=== PATIENT | female | born 1990 | race Caucasian/White ===

== ENCOUNTER → 2016-10-01 | Outpatient (CLI) | payer MEDICAID ==
[~2016-10-01] MED LIST: AA/A14DR2 LEFT EAR; AMOX500C2 PO; AMOX500T2 PO; AUGMENTIN; CEPH-38 PO; CIPR-225 PO; CIPR500T78 PO; CLC500CT PO; CLIN-62 PO; DOXY100T61; FLT05NA16 NSEACH; HYDR1TAB8 PO; IBUP-2055 PO; IBUPROFEN; LORA10TA7 PO; METR500T PO; NF-ESOM40C PO; NITR100C3 PO; ONDA-42 SL; ONDA8TAB9 PO; POTA10CA43 PO; PRD20T PO; PREN1TAB39 PO; SUCR1TAB36 PO; TAMS0.4C98 PO; TERB125G PO; TRAM-42 PO; TRAM50TA2 PO
--- NOTE | 2016-10-01 10:30 | Diagnostic Imaging Report ---
First trimester OB ultrasound. INDICATION: Dating. FINDINGS: There is a normal-appearing single intrauterine . An embryo is seen with cardiac activity at 165 beats per minute. The crown-rump length is at 9 weeks and one day. ELSIE is [birth year]. The ovaries are obscured by bowel gas . IMPRESSION: Live single intrauterine . Dictated by: Dictated on workstation # [id number]
== END ==
LOC: RAD 09:54
PROVIDERS: ATTEND Family Medicine
DX: Z34.80 Encounter for supervision of other normal pregnancy, unspecified trimester (principal)
CPT/HCPCS: 76801

== ENCOUNTER 2016-10-11 18:43 | Observation (INO) | payer MEDICAID ==
[~2016-10-11] VITALS: Ht 162.6 cm; Wt 93.9 kg
[2016-10-11] MEDS ORDERED: NS IV 1000 ML 1,000 ML IV ONE (18:56)
[2016-10-11 19:06] LABS: BILIRUBIN,URINE NEGATIVE (NEGATIVE); KETONES,URINE NEGATIVE (NEGATIVE); LEUKOCYTE ESTERASE ,URINE 2+ (NEGATIVE); NITRITE,URINE NEGATIVE (NEGATIVE); PH,URINE 6 (5-9); PROTEIN,URINE NEGATIVE (NEGATIVE); UROBILINOGEN,URINE NORMAL (NORMAL)
--- NOTE | 2016-10-11 19:15 | ED Cough/URI ---
General Chief Complaint: Fever-Adult/Adol Stated Complaint: PAIN ALL OVER/10 WEEKS Nursing Triage Note: PT TO ED 5 W/ C/O GENERALIZED MALAISE, ACHE, FEVER ONSET 0230 THIS AM. REPORTS SHE IS 11WK ET HAS TAKEN TYLENOL 325 X5 OVER THE LAST 5HRS. Source: patient Exam Limitations: no limitations History of Present Illness Time seen by provider: 18:46 Initial Comments Here with c/o fever, chills, sore throat, body aches, runny nose and fatigue. Onset 1 pm today with fever at 5 PM. Took 5 reg acetaminophen over 5 hours. Reports 11 weeks . Timing/Duration: this afternoon Severity/Quality: mild, dry cough Prior Episodes/Possible Cause: occasional episodes Associated Symptoms: cough, fever/chills, nasal congestion, sore throat Allergies and Home Medications Allergies Coded Allergies: NKANo Known Allergies (Unverified Allergy, Mild, 09/29/08) Home Medications Ibuprofen 200 Mg Tablet, 200 MG PO PRN, (Reported) Prednisone 20 Mg Tab, 20 MG PO DAILY, #5 Prescribed by: PERLITA OJEDA on 05/11/16 1041 Tramadol HCl 50 Mg Tablet, 50 MG PO Q6H PRN for PAIN, #10 Prescribed by: PERLITA OJEDA on 05/11/16 1042 Constitutional: see HPI, chills, fever, malaise EENTM: see HPI Respiratory: see HPI, cough, No short of breath Cardiovascular: No chest pain, No edema Gastrointestinal: No abdominal pain, No diarrhea, No nausea, No vomiting Genitourinary: No dysuria, No pain : Yes Musculoskeletal: no symptoms reported, joint pain, muscle pain Skin: no symptoms reported All Other Systems Reviewed Negative Unless Noted: Yes Past Edwpdas-Ntvmlw-Wpzhok Hx Patient Social History Alcohol Use: Denies Use Recreational Drug Use: No Smoking Status: Current Everyday Smoker Recent Foreign Travel: No Contact w/Someone Who Travel: No Recent Infectious Disease Expo: No Recent Hopitalizations: Yes (childbirth) Immunizations Up To Date Date of Influenza Vaccine: Apr 03, 2015 Seasonal Allergies Seasonal Allergies: No Surgeries HX Surgeries: Yes (bmt) Surgeries: Adenoidectomy, Tonsillectomy Respiratory Hx Respiratory Disorders: Yes Respiratory Disorders: Asthma Cardiovascular Hx Cardiac Disorders: Yes Cardiac Disorders: High Cholesterol Neurological Hx Neurological Disorders: No Reproductive System Hx : 3 Hx Para: 2 Hx Reproductive Disorders: No Genitourinary Hx Genitourinary Disorders: No Gastrointestinal Hx Gastrointestinal Disorders: No Musculoskeletal Hx Musculoskeletal Disorders: Yes Musculoskeletal Disorders: Chronic Back Pain Endocrine Hx Endocrine Disorders: No HEENT HX ENT Disorders: No Cancer Hx Cancer: No Psychosocial Hx Psychiatric Problems: Yes Behavioral Health Disorders: Depression Integumentary HX Skin/Integumentary Disorder: No Blood Transfusions Hx Blood Disorders: No Reviewed Nursing Assessment Reviewed/Agree w Nursing PMH: Yes Family Medical History Significant Family History: Heart Disease, Hypertension Physical Exam Vital Signs Vital Sign - Last 12Hours 10/11/16 18:50 Temp 101.4 Pulse 106 Resp 24 B/P (MAP) 125/70 Pulse Ox 98 O2 Delivery Room Air Capillary Refill : Less Than 3 Seconds General Appearance: WD/WN, no apparent distress HEENT: PERRL/EOMI, pharyngeal erythema, No tonsillar exudate, other (Moderate nasal congestion with clear rhinorrhea.) Neck: full range of motion, supple Respiratory: lungs clear, normal breath sounds Cardiovascular: regular rate, rhythm, no murmur Gastrointestinal: non tender, soft Extremities: normal range of motion, non-tender Neurologic/Psychiatric: alert, oriented x 3 Skin: normal color, warm/dry Focused Exam Lactic Acid Level Laboratory Tests Test 10/11/16 21:05 Lactic Acid Level 0.81 MMOL/L (0.50-2.00) Progress/Results/Core Measures Results/Orders Lab Results Laboratory Tests Test 10/11/16 19:00 10/11/16 19:19 10/11/16 21:05 Range/Units Urine Color YELLOW Urine Clarity CLEAR Urine pH 6 5-9 Urine Specific [place] 1.020 1.016-1.022 Urine Protein NEGATIVE NEGATIVE Urine Glucose (UA) NEGATIVE NEGATIVE Urine Ketones NEGATIVE NEGATIVE Urine Nitrite NEGATIVE NEGATIVE Urine Bilirubin NEGATIVE NEGATIVE Urine Urobilinogen NORMAL NORMAL MG/DL Urine Leukocyte Esterase 2+ H NEGATIVE Urine RBC (Auto) NEGATIVE NEGATIVE Urine RBC NONE /HPF Urine WBC 5-10 H /HPF Urine Squamous Epithelial Cells 2-5 /HPF Urine Crystals NONE /LPF Urine Bacteria TRACE /HPF Urine Casts NONE /LPF Urine Mucus NEGATIVE /LPF Urine Culture Indicated YES White Blood Count 16.0 H 4.3-11.0 10^3/uL Red Blood Count 4.52 4.35-5.85 10^6/uL Hemoglobin 14.3 11.5-16.0 G/DL Hematocrit 42 35-52 % Mean Corpuscular Volume 92 80-99 FL Mean Corpuscular Hemoglobin 32 25-34 PG Mean Corpuscular Hemoglobin Concent 34 32-36 G/DL Red Cell Distribution Width 14.2 10.0-14.5 % Platelet Count 256 130-400 10^3/uL Mean Platelet Volume 10.4 7.4-10.4 FL Neutrophils (%) (Auto) 84 H 42-75 % Lymphocytes (%) (Auto) 9 L 12-44 % Monocytes (%) (Auto) 7 0-12 % Eosinophils (%) (Auto) 0 0-10 % Basophils (%) (Auto) 0 0-10 % Neutrophils # (Auto) 13.4 H 1.8-7.8 X 10^3 Lymphocytes # (Auto) 1.4 1.0-4.0 X 10^3 Monocytes # (Auto) 1.1 H 0.0-1.0 X 10^3 Eosinophils # (Auto) 0.0 0.0-0.3 10^3/uL Basophils # (Auto) 0.0 0.0-0.1 10^3/uL Neutrophils % (Manual) 80 % Lymphocytes % (Manual) 18 % Monocytes % (Manual) 1 % Eosinophils % (Manual) 0 % Basophils % (Manual) 0 % Band Neutrophils 1 % Blood Morphology Comment NORMAL Sodium Level 138 135-145 MMOL/L Potassium Level 3.8 3.6-5.0 MMOL/L Chloride Level 104 98-107 MMOL/L Carbon Dioxide Level 23 21-32 MMOL/L Anion Gap 11 5-14 MMOL/L Blood Urea Nitrogen 9 7-18 MG/DL Creatinine 0.71 0.60-1.30 MG/DL Estimat Glomerular Filtration Rate > 60 BUN/Creatinine Ratio 13 Glucose Level 92 70-105 MG/DL Calcium Level 9.6 8.5-10.1 MG/DL Total Bilirubin 0.3 0.1-1.0 MG/DL Aspartate Amino Transf (AST/SGOT) 14 5-34 U/L Alanine Aminotransferase (ALT/SGPT) 21 0-55 U/L Alkaline Phosphatase 86 40-136 U/L Total Protein 7.0 6.4-8.2 G/DL Albumin 4.0 3.2-4.5 G/DL Acetaminophen Level < 10 L 10-30 UG/ML Monoscreen NEGATIVE NEGATIVE Lactic Acid Level 0.81 0.50-2.00 MMOL/L Micro Results Microbiology 10/11/16 Influenza Types A,B Antigen (EMILY) - Final, Complete My Orders Orders - THOMAS HAWLEY MD Acetaminophen (10/11/16 18:56) Cbc With Automated Diff (10/11/16 18:56) Comprehensive Metabolic Panel (10/11/16 18:56) Ua Culture If Indicated (10/11/16 18:56) Influenza A And B Antigens (10/11/16 18:56) Saline Lock/Iv-Start (10/11/16 18:56) Ns Iv 1000 Ml (Sodium Chloride 0.9%) (10/11/16 18:56) Urine Culture (10/11/16 19:00) Manual Differential (10/11/16 19:19) Monotest (10/11/16 19:31) Ceftriaxone Injection (Rocephin Injectio (10/11/16 20:15) Lactic Acid Analyzer (10/11/16 21:17) Blood Culture (10/11/16 21:17) Hydrocodone/Apap 5/325 Tablet (Lortab 5 (10/11/16 21:21) Drug Screen Stat (Urine) (10/11/16 21:36) Medications Given in ED Current Medications Medications Dose Ordered Sig/Carlos Route Start Time Stop Time Status Last Admin Dose Admin Ceftriaxone Sodium 1000 mg/ Sodium Chloride 50 ml @ 100 mls/hr ONCE ONCE IV 10/11/16 20:15 10/11/16 20:44 DC 10/11/16 20:28 100 MLS/HR Sodium Chloride 1,000 ml @ 0 mls/hr Q0M ONCE IV 10/11/16 18:56 10/11/16 18:59 DC 10/11/16 19:20 1,000 MLS/HR Vital Signs/I&O Vital Sign - Last 12Hours 10/11/16 18:50 Temp 101.4 Pulse 106 Resp 24 B/P (MAP) 125/70 Pulse Ox 98 O2 Delivery Room Air Blood Pressure Mean: 88 Progress Note : Progress Note seen and evaluated. IV, labs, ua, flu screen ordered. NS 1 lt bolus. monitor patient. I did discuss the case with Dr. Jones. We will add mono spot check. Monitor patient. 2029: Rocephin 1 g IV given. Anticipate discharge home. 2054 : I did discuss the case with Dr. Jones. She would actually like to keep her overnight observation and repeat dosing of Rocephin tomorrow to ensure that she is improving. We will do blood cultures and lactic acid although this is after antibiotic administration. No indications of severe sepsis or septic shock at this point. Patient agreeable to admission. 2119: Patient complaining of body aches. Hydrocodone 5/325 one tab by mouth given. Admit, observation status. Lactic acid not elevated. Improved at time of admission. Departure Communication Time/Spoke to Consulting Physi: 20:55 Impression Impression: Primary Impression: Fever Qualified Codes: R50.9 - Fever, unspecified Additional Impression: UTI (urinary tract infection) Qualified Codes: N30.00 - Acute cystitis without hematuria Disposition: ADMITTED INPATIENT Condition: Stable Decision to Admit Reason: Admit from ER (General) Decision to Admit/Date: October 11, 2016 Time/Decision to Admit Time: 20:55 Departure-Patient Inst. Referrals: GIGI GARCIA MD (PCP/Family) Primary Care Physician THOMAS HAWELY MD October 11, 2016 19:15
[2016-10-11 19:28] LABS: BASOPHILS % (AUTO) 0 % (0-10); EOSINOPHILS % (AUTO) 0 % (0-10); LYMPHOCYTES # (AUTO) 1.4 X 10^3 (1.0-4.0); LYMPHOCYTES % (AUTO) 9 % (12-44); MEAN CORPUSCULAR HEMOGLOBIN 32 PG (25-34); MEAN CORPUSCULAR HGB CONC 34 G/DL (32-36); MEAN CORPUSCULAR VOLUME 92 FL (80-99); MEAN PLATELET VOLUME 10.4 FL (7.4-10.4); MONOCYTES # (AUTO) 1.1 X 10^3 (0.0-1.0); MONOCYTES % (AUTO) 7 % (0-12); NEUTROPHILS # (AUTO) 13.4 X 10^3 (1.8-7.8); NEUTROPHILS % (AUTO) 84 % (42-75); PLATELET COUNT 256 10^3/uL (130-400); RED BLOOD COUNT 4.52 10^6/uL (4.35-5.85); RED CELL DISTRIBUTION WIDTH 14.2 % (10.0-14.5)
[2016-10-11 20:00] LABS: ALANINE AMINOTRANSFERASE 21 U/L (0-55); ANION GAP 11 MMOL/L (5-14); ASPARTATE AMINO TRANSFERASE 14 U/L (5-34); BILIRUBIN,TOTAL 0.3 MG/DL (0.1-1.0); BLOOD UREA NITROGEN 9 MG/DL (7-18); BUN/CREATININE RATIO 13; CALCIUM 9.6 MG/DL (8.5-10.1); CARBON DIOXIDE 23 MMOL/L (21-32); CHLORIDE 104 MMOL/L (98-107); CREATININE SERUM 0.71 MG/DL (0.60-1.30); GFR ESTIMATED > 60; GLUCOSE 92 MG/DL (70-105); POTASSIUM 3.8 MMOL/L (3.6-5.0); SODIUM 138 MMOL/L (135-145)
[2016-10-11 20:01] LABS: ACETAMINOPHEN < 10 UG/ML (10-30)
[2016-10-11 20:06] LABS: BAND NEUTROPHILS 1 %; BASOPHILS % (MANUAL) 0 %; EOSINOPHILS % (MANUAL) 0 %; LYMPHOCYTES % (MANUAL) 18 %; NEUTROPHILS % (MANUAL) 80 %
[2016-10-11] MEDS ORDERED: cefTRIAXone INJECTION 1,000 MG in NS (IVPB) 50 ML IV ONE (20:15)
[2016-10-11] MEDS ORDERED: HYDROcodone/APAP 5 MG/325 MG (LORTAB) TAB PO STA (21:21)
[2016-10-11 22:25] VITALS: BP 121/79
[2016-10-11] MEDS: NS IV 1000 ML 1,000 ML IV SCH (22:54)
[2016-10-11 23:58] VITALS: BP 116/55
[2016-10-12] MEDS: ACETAMINOPHEN 325 MG TABLET/CAPLET (TYLENOL) PO PRN ×4 (00:18→23:52)
[2016-10-12] MEDS: HYDROcodone/APAP 5 MG/325 MG (LORTAB) TAB PO PRN ×3 (03:54→19:49)
[2016-10-12 04:00] VITALS: BP 110/59
[2016-10-12 05:40] LABS: BASOPHILS % (AUTO) 0 % (0-10); EOSINOPHILS % (AUTO) 0 % (0-10); LYMPHOCYTES % (AUTO) 12 % (12-44); MEAN CORPUSCULAR HEMOGLOBIN 32 PG (25-34); MEAN CORPUSCULAR HGB CONC 34 G/DL (32-36); MEAN CORPUSCULAR VOLUME 93 FL (80-99); MEAN PLATELET VOLUME 11.4 FL (7.4-10.4); MONOCYTES # (AUTO) 1.4 X 10^3 (0.0-1.0); MONOCYTES % (AUTO) 8 % (0-12); NEUTROPHILS # (AUTO) 13.7 X 10^3 (1.8-7.8); NEUTROPHILS % (AUTO) 80 % (42-75); PLATELET COUNT 230 10^3/uL (130-400); RED BLOOD COUNT 4.25 10^6/uL (4.35-5.85); RED CELL DISTRIBUTION WIDTH 14.2 % (10.0-14.5); WHITE BLOOD COUNT 17.1 10^3/uL (4.3-11.0)
[2016-10-12 05:58] LABS: ALANINE AMINOTRANSFERASE 18 U/L (0-55); ALBUMIN 3.4 G/DL (3.2-4.5); ANION GAP 11 MMOL/L (5-14); ASPARTATE AMINO TRANSFERASE 12 U/L (5-34); BILIRUBIN,TOTAL 0.3 MG/DL (0.1-1.0); BLOOD UREA NITROGEN 5 MG/DL (7-18); BUN/CREATININE RATIO 9; CALCIUM 8.7 MG/DL (8.5-10.1); CARBON DIOXIDE 19 MMOL/L (21-32); CHLORIDE 107 MMOL/L (98-107); CREATININE SERUM 0.58 MG/DL (0.60-1.30); GFR ESTIMATED > 60; GLUCOSE 94 MG/DL (70-105); POTASSIUM 3.6 MMOL/L (3.6-5.0); SODIUM 137 MMOL/L (135-145)
[2016-10-12] MEDS: NS IV 1000 ML 1,000 ML IV SCH ×3 (06:59→23:53)
[2016-10-12 08:00] VITALS: BP 112/60
--- NOTE | 2016-10-12 09:36 | History & Physicial ([facility]) ---
HPI History of Present Illness: Previously healthy at 10w5d presented to ER with body aches, fever, sore throat, swollen left cervical lymph nodes, left ear pain and vomiting for one day. No vaginal bleeding, no abdominal pain. No known sick contacts. In ER, flu and mono testing negative, but found to have high WBC along with fever. Date seen by provider: October 12, 2016 Time seen by provider: 07:15 Attending Physician Gigi Villafuerte MD PCP Gigi Villafuerte MD Consult Date of Admission October 11, 2016 at 9:44 pm Home Medications Home Medications Reviewed patient Home Medication Reconciliation Form Allergies Coded Allergies: NKANo Known Allergies (Unverified Allergy, Mild, 09/29/08) VCM-Ufpnlx-Tmpbrh Hx Patient Social History Alcohol Use: Denies Use Recreational Drug Use: No Smoking Status: Current Everyday Smoker Recent Foreign Travel: No Contact w/other who traveled: No Recent Hopitalizations: Yes (childbirth) Recent Infectious Disease Expo: No Physical Abuse Screen: No Sexual Abuse: No Immunizations Up To Date Date of Influenza Vaccine: Apr 03, 2015 Past Medical History PMHx: Depression PSurgHx: Tympanostomy tubes Tonsillectomy Family Medical History Significant Family History: Heart Disease, Diabetes, Hypertension Review of Systems ([facility]C) Constitutional: chills, fever EENTM: see HPI Respiratory: see HPI Cardiovascular: No chest pain Gastrointestinal: No abdominal pain, No constipation, No diarrhea, nausea, vomiting Genitourinary: No dysuria : Yes Expected Date of Delivery: Apr 26, 2017 Musculoskeletal: muscle pain Skin: no symptoms reported Psychiatric/Neurological: No Symptoms Reported Reviewed Test Results Reviewed Test Results Lab Laboratory Tests Test 10/11/16 19:00 10/11/16 19:19 10/11/16 21:05 10/12/16 04:52 Range/Units Urine Color YELLOW Urine Clarity CLEAR Urine pH 6 5-9 Urine Specific [place] 1.020 1.016-1.022 Urine Protein NEGATIVE NEGATIVE Urine Glucose (UA) NEGATIVE NEGATIVE Urine Ketones NEGATIVE NEGATIVE Urine Nitrite NEGATIVE NEGATIVE Urine Bilirubin NEGATIVE NEGATIVE Urine Urobilinogen NORMAL NORMAL MG/DL Urine Leukocyte Esterase 2+ H NEGATIVE Urine RBC (Auto) NEGATIVE NEGATIVE Urine RBC NONE /HPF Urine WBC 5-10 H /HPF Urine Squamous Epithelial Cells 2-5 /HPF Urine Crystals NONE /LPF Urine Bacteria TRACE /HPF Urine Casts NONE /LPF Urine Mucus NEGATIVE /LPF Urine Culture Indicated YES Urine Opiates Screen NEGATIVE NEGATIVE Urine Oxycodone Screen NEGATIVE NEGATIVE Urine Methadone Screen NEGATIVE NEGATIVE Urine Propoxyphene Screen NEGATIVE NEGATIVE Urine Barbiturates Screen NEGATIVE NEGATIVE Ur Tricyclic Antidepressants Screen NEGATIVE NEGATIVE Urine Phencyclidine Screen NEGATIVE NEGATIVE Urine Amphetamines Screen NEGATIVE NEGATIVE Urine Methamphetamines Screen NEGATIVE NEGATIVE Urine Benzodiazepines Screen NEGATIVE NEGATIVE Urine Cocaine Screen NEGATIVE NEGATIVE Urine Cannabinoids Screen NEGATIVE NEGATIVE White Blood Count 16.0 H 17.1 H 4.3-11.0 10^3/uL Red Blood Count 4.52 4.25 L 4.35-5.85 10^6/uL Hemoglobin 14.3 13.4 11.5-16.0 G/DL Hematocrit 42 39 35-52 % Mean Corpuscular Volume 92 93 80-99 FL Mean Corpuscular Hemoglobin 32 32 25-34 PG Mean Corpuscular Hemoglobin Concent 34 34 32-36 G/DL Red Cell Distribution Width 14.2 14.2 10.0-14.5 % Platelet Count 256 230 130-400 10^3/uL Mean Platelet Volume 10.4 11.4 H 7.4-10.4 FL Neutrophils (%) (Auto) 84 H 80 H 42-75 % Lymphocytes (%) (Auto) 9 L 12 12-44 % Monocytes (%) (Auto) 7 8 0-12 % Eosinophils (%) (Auto) 0 0 0-10 % Basophils (%) (Auto) 0 0 0-10 % Neutrophils # (Auto) 13.4 H 13.7 H 1.8-7.8 X 10^3 Lymphocytes # (Auto) 1.4 2.0 1.0-4.0 X 10^3 Monocytes # (Auto) 1.1 H 1.4 H 0.0-1.0 X 10^3 Eosinophils # (Auto) 0.0 0.0 0.0-0.3 10^3/uL Basophils # (Auto) 0.0 0.0 0.0-0.1 10^3/uL Neutrophils % (Manual) 80 % Lymphocytes % (Manual) 18 % Monocytes % (Manual) 1 % Eosinophils % (Manual) 0 % Basophils % (Manual) 0 % Band Neutrophils 1 % Blood Morphology Comment NORMAL Sodium Level 138 137 135-145 MMOL/L Potassium Level 3.8 3.6 3.6-5.0 MMOL/L Chloride Level 104 107 98-107 MMOL/L Carbon Dioxide Level 23 19 L 21-32 MMOL/L Anion Gap 11 11 5-14 MMOL/L Blood Urea Nitrogen 9 5 L 7-18 MG/DL Creatinine 0.71 0.58 L 0.60-1.30 MG/DL Estimat Glomerular Filtration Rate > 60 > 60 BUN/Creatinine Ratio 13 9 Glucose Level 92 94 70-105 MG/DL Calcium Level 9.6 8.7 8.5-10.1 MG/DL Total Bilirubin 0.3 0.3 0.1-1.0 MG/DL Aspartate Amino Transf (AST/SGOT) 14 12 5-34 U/L Alanine Aminotransferase (ALT/SGPT) 21 18 0-55 U/L Alkaline Phosphatase 86 74 40-136 U/L Total Protein 7.0 6.0 L 6.4-8.2 G/DL Albumin 4.0 3.4 3.2-4.5 G/DL Acetaminophen Level < 10 L 10-30 UG/ML Monoscreen NEGATIVE NEGATIVE Lactic Acid Level 0.81 0.50-2.00 MMOL/L Test 10/12/16 07:20 Range/Units Group A Streptococcus Screen NEGATIVE NEGATIVE Physical Exam-(CHC) Physical Exam Vital Signs VS - Last 72 Hours, by Label 10/11/16 10/11/16 10/11/16 10/11/16 18:50 22:04 22:25 23:58 Temp 101.4 102.0 100.9 98.8 Pulse 106 112 107 111 Resp 24 24 16 20 B/P (MAP) 125/70 121/79 116/55 Pulse Ox 98 98 99 98 O2 Delivery Room Air 10/12/16 10/12/16 04:00 08:00 Temp 99.9 98.1 Pulse 103 101 Resp 20 16 B/P (MAP) 110/59 112/60 Pulse Ox 99 99 Capillary Refill : Less Than 3 Seconds General Appearance: WD/WN, no apparent distress HEENT: pharyngeal erythema, other (Both TMs with scarring, no evidence of infection) Neck: lymphadenopathy (L) Respiratory: lungs clear, normal breath sounds, no respiratory distress Cardiovascular: regular rate, rhythm, no edema, no murmur Gastrointestinal: normal bowel sounds, non tender, soft Extremities: no pedal edema Neurologic/Psychiatric: alert, normal mood/affect Skin: normal color, warm/dry Assessment/Plan Assessment/Plan Admission Dx 1. Pharyngitis 2. Fever 3. Possible UTI 4. 10 weeks gestation of Plan 1. Pharyngitis- strep, mono and flu testing negative 2. Fever/leukocytosis- suspect related to viral pharyngitis, but given her relatively marked leukocytosis and fever and , will continue IV rocephin and wait on urine culture 3. Possible UTI- culture pending 4. 10 weeks gestation of - ultrasound on 10/01 demonstrated viable IUP, no current intervention needed, will use safest possible medications for DVT ppx- SCDs Diagnosis/Problems: Clinical Quality Measures DVT/VTE Risk/Contraindication: Risk Factor Score Per Nursin RFS Level Per Nursing on Admit: 4+=Very High Copy Copies To 1: GIGI VILLAFUERTE MD, BETHANY N MD October 12, 2016 9:36 am
[2016-10-12] MEDS ORDERED: FLUO20CA42 PO (09:45)
[2016-10-12 12:00] VITALS: BP 108/62
[2016-10-12 16:00] VITALS: BP 101/67
[2016-10-12 19:25] VITALS: BP 106/69
[2016-10-12] MEDS ORDERED: cefTRIAXone INJECTION 1,000 MG in NS (IVPB) 50 ML IV SCH (20:00)
[2016-10-13] VITALS: BP 110/68
[2016-10-13 03:54] VITALS: BP 96/61
[2016-10-13] MEDS: HYDROcodone/APAP 5 MG/325 MG (LORTAB) TAB PO PRN (04:34)
[2016-10-13 05:41] LABS: MEAN PLATELET VOLUME 11.6 FL (7.4-10.4); RED BLOOD COUNT 3.95 10^6/uL (4.35-5.85); RED CELL DISTRIBUTION WIDTH 14.7 % (10.0-14.5); WHITE BLOOD COUNT 16.7 10^3/uL (4.3-11.0)
[2016-10-13] MEDS: NS IV 1000 ML 1,000 ML IV SCH (06:49)
[2016-10-13 08:00] VITALS: BP 102/57
[2016-10-13] MEDS: ACETAMINOPHEN 325 MG TABLET/CAPLET (TYLENOL) PO PRN (08:15)
[2016-10-13] MEDS ORDERED: AMOX500T2 PO (09:26)
--- NOTE | 2016-10-13 09:29 | Discharge Instructions ---
Discharge [facility] Discharge Medications New, Converted or Re-Newed RX: Transmitted to Pharmacy New Medications: Amoxicillin (Amoxicillin) 500 Mg Tablet 500 MG PO Q12H for 10 Days, #20 TAB 0 Refills Continued Medications: Fluoxetine HCl (Prozac) 20 Mg Capsule 20 MG PO DAILY, CAP Patient Instructions Goal/Follow Up Appt: Follow up with Dr. Villafuerte as scheduled unless you are not getting better. Patient Instructions: Take acetaminophen (tylenol) up to 1000 mg up two three times per day to treat fever and/or pain. Do not use ibuprofen or aleve. If you still have fever tomorrow, make an appointment at [facility] right away. Return to The Hospital For: Inability to keep down antibiotics, difficulty swallowing, shortness of breath, high fever in spite of tylenol use Activity & Diet Discharge Diet: Regular Diet Activity as Tolerated: Yes Copy Copies To 1: GIGI VILLAFUERTE MD, BETHANY N MD October 13, 2016 09:28
--- NOTE | 2016-10-13 09:32 | Discharge Summary ---
Diagnosis/Chief Complaint Date of Admission October 11, 2016 at 21:44 Date of Discharge October 13, 2016 Admission Diagnosis Admission Diagnosis 1. Pharyngitis 2. Fever 3. Possible UTI 4. 10 weeks gestation of Discharge Diagnosis 1. Streptococcal pharyngitis 2. Fever 3. Possible UTI- ruled out, urine culture negative 4. 10 weeks gestation of Chief Complaint/HPI Chief Complaint/HPI Previously healthy at 10w5d presented to ER with body aches, fever, sore throat, swollen left cervical lymph nodes, left ear pain and vomiting for one day. No vaginal bleeding, no abdominal pain. No known sick contacts. In ER, flu and mono testing negative, but found to have high WBC along with fever. Discharge Summary-Simple/Stand Consultations Discharge Physical Examination Allergies: Coded Allergies: NKANo Known Allergies (Unverified Allergy, Mild, 09/29/08) Vitals & I&Os Vital Sign - Last 12Hours Date Time Temp Pulse Resp B/P (MAP) Pulse Ox O2 Delivery O2 Flow Rate FiO2 10/13/16 08:00 97.4 92 16 102/57 98 10/11/16 18:50 Room Air Intake and Output 10/13/16 00:00 Intake Total 2950 ml Output Total 3150 ml Balance -200 ml General Appearance: Alert, No Acute Distress Respiratory: Clear to Auscultation, Normal Air Movement Cardiovascular: Regular Rate, No Murmurs Neuro: Normal Gait, Normal Speech Psych/Mental Status: Mental Status NL Hospital Course Patient admitted nad placed on rocephin with unclear origin of fever initially and high WBC- negative rapid strep, flu and mono testing, possible UTI. Urine culture negative, but strep culture was positive. She had fever last at midnight on day of d/c, but was feeling symptomatically much better and given source for fever and less than 48 hours of antibiotics, agreed with request for d/c. Given amoxicillin to complete course and instructed to follow-up barbara if fever persisted after 48 hours of antibiotics (Friday, October 13 pm). Also discussed dosing of acetaminophen to minimize fever due to first trimester and avoiding ibuprofen/NSAIDs due to first trimester . Labs Laboratory Tests Test 10/11/16 19:00 10/11/16 19:19 10/11/16 21:05 10/12/16 04:52 Range/Units Urine Color YELLOW Urine Clarity CLEAR Urine pH 6 5-9 Urine Specific [place] 1.020 1.016-1.022 Urine Protein NEGATIVE NEGATIVE Urine Glucose (UA) NEGATIVE NEGATIVE Urine Ketones NEGATIVE NEGATIVE Urine Nitrite NEGATIVE NEGATIVE Urine Bilirubin NEGATIVE NEGATIVE Urine Urobilinogen NORMAL NORMAL MG/DL Urine Leukocyte Esterase 2+ H NEGATIVE Urine RBC (Auto) NEGATIVE NEGATIVE Urine RBC NONE /HPF Urine WBC 5-10 H /HPF Urine Squamous Epithelial Cells 2-5 /HPF Urine Crystals NONE /LPF Urine Bacteria TRACE /HPF Urine Casts NONE /LPF Urine Mucus NEGATIVE /LPF Urine Culture Indicated YES Urine Opiates Screen NEGATIVE NEGATIVE Urine Oxycodone Screen NEGATIVE NEGATIVE Urine Methadone Screen NEGATIVE NEGATIVE Urine Propoxyphene Screen NEGATIVE NEGATIVE Urine Barbiturates Screen NEGATIVE NEGATIVE Ur Tricyclic Antidepressants Screen NEGATIVE NEGATIVE Urine Phencyclidine Screen NEGATIVE NEGATIVE Urine Amphetamines Screen NEGATIVE NEGATIVE Urine Methamphetamines Screen NEGATIVE NEGATIVE Urine Benzodiazepines Screen NEGATIVE NEGATIVE Urine Cocaine Screen NEGATIVE NEGATIVE Urine Cannabinoids Screen NEGATIVE NEGATIVE White Blood Count 16.0 H 17.1 H 4.3-11.0 10^3/uL Red Blood Count 4.52 4.25 L 4.35-5.85 10^6/uL Hemoglobin 14.3 13.4 11.5-16.0 G/DL Hematocrit 42 39 35-52 % Mean Corpuscular Volume 92 93 80-99 FL Mean Corpuscular Hemoglobin 32 32 25-34 PG Mean Corpuscular Hemoglobin Concent 34 34 32-36 G/DL Red Cell Distribution Width 14.2 14.2 10.0-14.5 % Platelet Count 256 230 130-400 10^3/uL Mean Platelet Volume 10.4 11.4 H 7.4-10.4 FL Neutrophils (%) (Auto) 84 H 80 H 42-75 % Lymphocytes (%) (Auto) 9 L 12 12-44 % Monocytes (%) (Auto) 7 8 0-12 % Eosinophils (%) (Auto) 0 0 0-10 % Basophils (%) (Auto) 0 0 0-10 % Neutrophils # (Auto) 13.4 H 13.7 H 1.8-7.8 X 10^3 Lymphocytes # (Auto) 1.4 2.0 1.0-4.0 X 10^3 Monocytes # (Auto) 1.1 H 1.4 H 0.0-1.0 X 10^3 Eosinophils # (Auto) 0.0 0.0 0.0-0.3 10^3/uL Basophils # (Auto) 0.0 0.0 0.0-0.1 10^3/uL Neutrophils % (Manual) 80 % Lymphocytes % (Manual) 18 % Monocytes % (Manual) 1 % Eosinophils % (Manual) 0 % Basophils % (Manual) 0 % Band Neutrophils 1 % Blood Morphology Comment NORMAL Sodium Level 138 137 135-145 MMOL/L Potassium Level 3.8 3.6 3.6-5.0 MMOL/L Chloride Level 104 107 98-107 MMOL/L Carbon Dioxide Level 23 19 L 21-32 MMOL/L Anion Gap 11 11 5-14 MMOL/L Blood Urea Nitrogen 9 5 L 7-18 MG/DL Creatinine 0.71 0.58 L 0.60-1.30 MG/DL Estimat Glomerular Filtration Rate > 60 > 60 BUN/Creatinine Ratio 13 9 Glucose Level 92 94 70-105 MG/DL Calcium Level 9.6 8.7 8.5-10.1 MG/DL Total Bilirubin 0.3 0.3 0.1-1.0 MG/DL Aspartate Amino Transf (AST/SGOT) 14 12 5-34 U/L Alanine Aminotransferase (ALT/SGPT) 21 18 0-55 U/L Alkaline Phosphatase 86 74 40-136 U/L Total Protein 7.0 6.0 L 6.4-8.2 G/DL Albumin 4.0 3.4 3.2-4.5 G/DL Acetaminophen Level < 10 L 10-30 UG/ML Monoscreen NEGATIVE NEGATIVE Lactic Acid Level 0.81 0.50-2.00 MMOL/L Test 10/12/16 07:20 10/13/16 04:30 Range/Units Group A Streptococcus Screen NEGATIVE NEGATIVE White Blood Count 16.7 H 4.3-11.0 10^3/uL Red Blood Count 3.95 L 4.35-5.85 10^6/uL Hemoglobin 12.5 11.5-16.0 G/DL Hematocrit 37 35-52 % Mean Corpuscular Volume 94 80-99 FL Mean Corpuscular Hemoglobin 32 25-34 PG Mean Corpuscular Hemoglobin Concent 34 32-36 G/DL Red Cell Distribution Width 14.7 H 10.0-14.5 % Platelet Count 206 130-400 10^3/uL Mean Platelet Volume 11.6 H 7.4-10.4 FL Discharge Instructions to patient/family Please see electonic discharge instructions given to patient. Discharge Medications Reviewed and agree with Discharge Medication list on patient's Discharge Instruction sheet Clinical Quality Measures DVT/VTE Risk/Contraindication: Risk Factor Score Per Nursin RFS Level Per Nursing on Admit: 4+=Very High Copy Copies To 1: GIGI GARCIA MD, BETHANY N MD October 13, 2016 09:32
[2016-10-13 10:00] VITALS: BP 102/57
== END 2016-10-13 09:26 | disposition home or self-care (01) ==
LOC: EDUNIT# 18:43 → ER 18:45 → UNDOADMOB 21:44 → 4TH 21:44 → UNDODISOB 10-13 10:15
PROVIDERS: ADMIT Family Medicine; ATTEND Family Medicine
DX: O99.511 Diseases of the respiratory system complicating pregnancy, first trimester (principal); J02.9 Acute pharyngitis, unspecified; R59.0 Localized enlarged lymph nodes; H92.03 Otalgia, bilateral; O99.331 Smoking (tobacco) complicating pregnancy, first trimester; F17.210 Nicotine dependence, cigarettes, uncomplicated; Z3A.10 10 weeks gestation of pregnancy
CPT/HCPCS: 36415; 80053; 80306; 80329; 81000; 83605; 85007; 85025; 85027; 86308; 87040; 87088; 87430; 87804; 96361; 96365; G0378

== ENCOUNTER → 2016-12-18 | Outpatient (CLI) | payer MEDICAID ==
[~2016-12-18] MED LIST changes: +FLUO20CA42 PO
--- NOTE | 2016-12-18 17:25 | Diagnostic Imaging Report ---
INDICATION: survey. TECHNIQUE: Multiple real-time grayscale images were obtained over the gravid uterus. COMPARISON: 10/01/2016 FINDINGS: heart size is 143 beats per minute. The placenta is anterior. No placenta previa. No ventriculomegaly. The four-chamber view appears unremarkable. The cord insertion is not well from adjacent extremity. The spine is not well evaluated. Three-vessel cord is seen. The bladder appears unremarkable. No hydronephrosis or cystic mass at the level of the kidneys. The stomach is not well seen. The posterior fossa and the brain is not well seen. Biometrical measurements are as follows: Biparietal 5.0 cm, age 21 weeks 1 days. Head circumference 18.5 cm, age 21 weeks 0 days. Abdominal circumference 16.6 cm, age 21 weeks 5 days. Femur length 3.3 cm, age 20 weeks 2 days. Sonographic estimate age: 21 weeks 1 days. This compares to gestational age of 20 weeks and 2 days based on ELSIE of 05[birth year]05/2017. Sonographic estimated date of delivery: 04/29/17. Estimated Weight: 392 gm (+/- 57 gm). LMP percentile: 83%. heart rate: 143 beats per minute. number: 1 of 1. IMPRESSION: Followup study within 2 weeks is recommended to reevaluate the spine, cord insertion, the posterior fossa, and the stomach. Dictated by: Dictated on workstation # [id number]
== END ==
LOC: RAD 10:11
PROVIDERS: ATTEND Family Medicine
DX: Z36 Encounter for antenatal screening of mother (principal); Z3A.21 21 weeks gestation of pregnancy
CPT/HCPCS: 76805

== ENCOUNTER 2017-01-13 09:04 | Outpatient (CLI) | payer MEDICAID ==
[~2017-01-13] VITALS: Ht 162.6 cm; Wt 91.3 kg
[2017-01-13 09:20] VITALS: BP 108/68
[2017-01-13 09:47] LABS: BILIRUBIN,URINE NEGATIVE (NEGATIVE); KETONES,URINE NEGATIVE (NEGATIVE); LEUKOCYTE ESTERASE ,URINE 3+ (NEGATIVE); NITRITE,URINE NEGATIVE (NEGATIVE); PH,URINE 7 (5-9); PROTEIN,URINE NEGATIVE (NEGATIVE); UROBILINOGEN,URINE NORMAL (NORMAL)
[2017-01-13] MEDS ORDERED: HYDR250V7 IM ×2 (09:49)
[2017-01-13] MEDS ORDERED: PREN1TAB86 PO ×2 (09:49)
[2017-01-13] MEDS ORDERED: NITR-65 PO ×2 (10:15)
--- NOTE | 2017-01-14 13:02 | Physician Query-Final Dx ---
PAYAM OATES 01/14/17 1302: Clinic Account Progress/Dx Physician Query: Please give diagnosis Date of Service Jan 13, 2017 at 09:04 ARIEL IRVIN DO 02/04/17 0616: Clinic Account Progress/Dx DIAGNOSIS: Diagnosis 1. 24wk GA 2. dysuria PAYAM OATES Jan 14, 2017 13:02 ARIEL IRVIN DO Feb 04, 2017 06:16
== END 2017-01-13 10:25 | disposition home or self-care (01) ==
LOC: WSo 09:04 → LDRP 09:08 → WSo 10:25
PROVIDERS: ATTEND Family Medicine
DX: R30.0 Dysuria (principal); Z3A.24 24 weeks gestation of pregnancy
CPT/HCPCS: 80306; 81000; 87088; 99213

== ENCOUNTER → 2017-01-31 | Outpatient (CLI) | payer MEDICAID ==
[~2017-01-31] MED LIST changes: +HYDR250V7 IM; +NITR-65 PO; +PREN1TAB86 PO
--- NOTE | 2017-01-31 16:42 | Diagnostic Imaging Report ---
INDICATION: contractions. FINDINGS: Cervix measuring a maximal length of 3.2 cm was nondilated. Pires gestation is in cephalic position. The amniotic fluid volume appears unremarkable. The placenta is anterior. No gross abnormality at the anatomical survey revealed; however, cord insertion and spine suboptimally evaluated on a positional basis. IMPRESSION: Cervix is measuring 3.2 cm. It is nondilated. There is a normal volume of amniotic fluid. Dictated by: Dictated on workstation # [id number]
== END ==
LOC: RAD 15:55
PROVIDERS: ATTEND Nurse Practitioner Family
DX: O47.9 False labor, unspecified (principal); Z3A.00 Weeks of gestation of pregnancy not specified
CPT/HCPCS: 76815

== ENCOUNTER 2017-02-24 09:45 | Emergency (ER) | payer MEDICAID ==
[~2017-02-24] VITALS: Ht 162.6 cm; Wt 91.3 kg
[2017-02-24 10:55] VITALS: BP 116/77
== END 2017-02-24 10:55 | disposition home or self-care (01) ==
LOC: EDUNIT# 09:45 → ER 09:47
DX: O99.89 Other specified diseases and conditions complicating pregnancy, childbirth and the puerperium (principal); M67.431 Ganglion, right wrist; M67.432 Ganglion, left wrist; O99.343 Other mental disorders complicating pregnancy, third trimester; F32.9 Major depressive disorder, single episode, unspecified; O99.513 Diseases of the respiratory system complicating pregnancy, third trimester; J45.909 Unspecified asthma, uncomplicated; O99.283 Endocrine, nutritional and metabolic diseases complicating pregnancy, third trimester; E78.00 Pure hypercholesterolemia, unspecified; Z90.49 Acquired absence of other specified parts of digestive tract; Z90.89 Acquired absence of other organs; Z3A.30 30 weeks gestation of pregnancy; Z82.49 Family history of ischemic heart disease and other diseases of the circulatory system
CPT/HCPCS: 99282

== ENCOUNTER 2017-03-20 00:41 | Outpatient (CLI) | payer MEDICAID ==
[~2017-03-20] VITALS: Ht 162.6 cm; Wt 89.9 kg
[2017-03-20 01:00] VITALS: BP 120/75
[2017-03-20 01:10] LABS: BILIRUBIN,URINE NEGATIVE (NEGATIVE); KETONES,URINE NEGATIVE (NEGATIVE); LEUKOCYTE ESTERASE ,URINE 3+ (NEGATIVE); NITRITE,URINE NEGATIVE (NEGATIVE); PH,URINE 6.5 (5-9); PROTEIN,URINE NEGATIVE (NEGATIVE); UROBILINOGEN,URINE NORMAL (NORMAL)
[2017-03-20] MEDS ORDERED: RIMA100T PO (01:30)
[2017-03-20] MEDS ORDERED: CETI10CA PO (01:31)
[2017-03-20] MEDS ORDERED: LIDOCAINE 1% INJ 20 ML (XYLOCAINE) VIAL INJ ONE (02:00)
[2017-03-20] MEDS ORDERED: cefTRIAXone 1 GM (ROCEPHIN) VIAL IM ONE (02:00)
[2017-03-20] MEDS ORDERED: NITR-65 PO (02:13)
--- NOTE | 2017-03-21 11:36 | Physician Query-Final Dx ---
DEIDRA ORLANDO 03/21/17 1136: Clinic Account Progress/Dx Physician Query: Please give diagnosis Date of Service Mar 20, 2017 at 00:41 SHADIA NÚÑEZ DO 03/22/17 2126: Clinic Account Progress/Dx DIAGNOSIS: Diagnosis Threatened Labor DEIDRA ORLANDO Mar 21, 2017 11:36 SHADIA NÚÑEZ DO Mar 22, 2017 21:26
== END 2017-03-20 02:30 | disposition home or self-care (01) ==
LOC: WSo 00:41 → LDRP 00:42 → WSo 02:30
PROVIDERS: ATTEND Family Medicine
DX: O47.03 False labor before 37 completed weeks of gestation, third trimester (principal); Z3A.33 33 weeks gestation of pregnancy
CPT/HCPCS: 81000; 87088; 96372; 99213

== ENCOUNTER 2017-04-07 01:25 | Inpatient (IN) | payer MEDICAID ==
[2017-04-07] VITALS (73 sets, daily range): BP systolic 107–137; BP diastolic 56–89
[~2017-04-07] VITALS: Ht 162.6 cm; Wt 91.7 kg
[~2017-04-07 01:25] MED LIST changes: +CETI10CA PO; +RIMA100T PO
[2017-04-07 01:47] LABS: BILIRUBIN,URINE NEGATIVE (NEGATIVE); KETONES,URINE NEGATIVE (NEGATIVE); LEUKOCYTE ESTERASE ,URINE NEGATIVE (NEGATIVE); NITRITE,URINE NEGATIVE (NEGATIVE); PH,URINE 8 (5-9); PROTEIN,URINE NEGATIVE (NEGATIVE); UROBILINOGEN,URINE NORMAL (NORMAL)
[2017-04-07] MEDS ORDERED: ACET325T38 PO (01:53)
[2017-04-07 01:54] LABS: SQUAMOUS EPITHELIAL CELL,UR 0-2 /HPF; WBC,URINE RARE /HPF
[2017-04-07] MEDS ORDERED: morphine INJ 10 MG/ML 1ML (SYR OR VIAL) IJ ONE (04:00)
[2017-04-07] MEDS ORDERED: morphine INJ 10 MG/ML 1ML (SYR OR VIAL) IVP NR (07:30)
[2017-04-07] MEDS ORDERED: D5 LR IV SOLUTION 1,000 ML IV ONE (10:12)
[2017-04-07] MEDS: D5 LR IV SOLUTION 1,000 ML IV SCH ×2 (10:33→20:08)
[2017-04-07] MEDS ORDERED: AMPICILLIN 2000 MG INJECTION (IM/IV) ONE (10:42)
[2017-04-07] MEDS ORDERED: NS (IVPB) 50 ML ONE (10:43)
[2017-04-07] MEDS ORDERED: MINERAL OIL CONCENTRATE 99.9% 15 ML UDC TOP PRN (10:45)
[2017-04-07] MEDS ORDERED: AMPICILLIN INJECTION 2,000 MG in NS (IVPB) 50 ML IV SCH (10:45)
[2017-04-07 10:56] LABS: BASOPHILS % (AUTO) 0 % (0-10); EOSINOPHILS # (AUTO) 0.1 10^3/uL (0.0-0.3); EOSINOPHILS % (AUTO) 1 % (0-10); LYMPHOCYTES # (AUTO) 2.7 X 10^3 (1.0-4.0); LYMPHOCYTES % (AUTO) 18 % (12-44); MEAN CORPUSCULAR HEMOGLOBIN 32 PG (25-34); MEAN CORPUSCULAR HGB CONC 35 G/DL (32-36); MEAN CORPUSCULAR VOLUME 89 FL (80-99); MEAN PLATELET VOLUME 11.7 FL (7.4-10.4); MONOCYTES # (AUTO) 1.4 X 10^3 (0.0-1.0); MONOCYTES % (AUTO) 10 % (0-12); NEUTROPHILS # (AUTO) 10.3 X 10^3 (1.8-7.8); NEUTROPHILS % (AUTO) 71 % (42-75); PLATELET COUNT 273 10^3/uL (130-400); RED BLOOD COUNT 4.41 10^6/uL (4.35-5.85); RED CELL DISTRIBUTION WIDTH 13.8 % (10.0-14.5); WHITE BLOOD COUNT 14.5 10^3/uL (4.3-11.0)
[2017-04-07] MEDS ORDERED: SUFENTA 0.6MCG/ML BUPIVA 0.125 100 ML ONE (11:26)
[2017-04-07] MEDS ORDERED: BUPIVACAINE 0.25% 30 ML (SENSORCAINE) VIAL ONE (11:40)
[2017-04-07] MEDS: EPIDURAL (SUFENTA 0.6MCG/ML BUPIVA 0.125%) 100 ML BAG EPI SCH ×2 (12:05→19:56)
[2017-04-07] MEDS ORDERED: LACTATED RINGERS 1,000 ML IV ONE (12:17)
[2017-04-07] MEDS ORDERED: ONDANSETRON 4 MG/2 ML (SDV) Z0FRAN IV PRN (12:30)
[2017-04-07] MEDS ORDERED: NALOXONE 0.4 MG/ML 1 ML (NARCAN) VIAL IV PRN (12:30)
[2017-04-07] MEDS ORDERED: CATHETER FLUSH 10 ML SYR IV SCH (14:00)
[2017-04-07] MEDS: AMPICILLIN INJECTION 1,000 MG in NS (IVPB) 50 ML IV SCH ×2 (15:10→19:22)
--- NOTE | 2017-04-07 18:46 | History & Physical-OB ---
OB - Chief Complaint & HPI Date/Time Date of Admission: Date of Admission: Apr 07, 2017 at 10:44 Time Seen by Provider: 18:41 Chief Complaint/History OB-Reason for Admission/Chief: Labor Hx : 3 Hx Para: 2 Expected Date of Delivery: May 05, 2017 Gestational Age in Weeks: 36 Gestational Age in Days: 0 Allergies and Home Medications Allergies Coded Allergies: NKANo Known Allergies (Unverified Allergy, Mild, 09/29/08) Home Medications Acetaminophen 325 Mg Tablet, 325 MG PO PRN, (Reported) Cetirizine HCl 10 Mg Capsule, 10 MG PO DAILY, (Reported) Fluoxetine HCl 20 Mg Capsule, 10 MG PO DAILY, (Reported) Hydroxyprogesterone Caproate 250 Mg/1 Ml Vial, 250 MG IM WEEK, (Reported) Vit W-Ca,Fe,FA(<1 mg) 1 Each Tablet, 1 EACH PO DAILY, (Reported) Rimantadine HCl 100 Mg Tablet, 100 MG PO DAILY, (Reported) OB - History Hx of Present Care: Yes Ultrasounds: Normal mid trimester US Obstetrical Complications: Other (Previous deliveries x2) Medical Complications: Psychiatric (h/o Substance abuse) Information Induced Hypertension: No Maternal Gestational Diabetes: No Hemorrhage: No Obstetrical History Hx : 3 Hx Para: 2 Hx # Pregnancies: 2 Hx Termination: Yes Delivery History Hx Blood Disorders: No Adverse Rxn to Tranfusion: No (N/a) Patient Past Medical History PMHx: Depression Substance abuse PSurgHx: Tympanostomy tubes Tonsillectomy Social History/Family History HIV/AIDS: No Recent Infectious Disease Expo: No Sexually Transmitted Disease: No Alcohol Use: Denies Use Recreational Drug Use: Yes (h/o Meth, 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 ) Immunizations Hepatitis A: No Hepatitis B: Yes Tetanus Booster (TDap): Less than 5yrs Date of Influenza Vaccine: Mar 07, 2017 Rubella: immune RPR/VDRL: Negative GBS Status: Negative HBsAG: Negative OB - Admission Exam Physical Exam Vitals: Vital Signs 04/07/17 04/07/17 04:10 04:44 Temp 97.5 Pulse 84 Resp 16 B/P (MAP) 114/74 O2 Delivery Room Air HEENT: NCAT Heart: Rhythm Normal Lungs: Clear Abdomen: Gravid Extremities: Normal Reflexes: Normal Cervical Dilatation: 7cm Effacement: 100% Station: -1 Membranes: Ruptured Amniotic Fluid: Clear Decelerations: No Decelerations Labs Laboratory Tests Test 04/07/17 01:35 04/07/17 10:35 Range/Units Urine Color YELLOW Urine Clarity CLEAR Urine pH 8 5-9 Urine Specific [place] 1.015 L 1.016-1.022 Urine Protein NEGATIVE NEGATIVE Urine Glucose (UA) NEGATIVE NEGATIVE Urine Ketones NEGATIVE NEGATIVE Urine Nitrite NEGATIVE NEGATIVE Urine Bilirubin NEGATIVE NEGATIVE Urine Urobilinogen NORMAL NORMAL MG/DL Urine Leukocyte Esterase NEGATIVE NEGATIVE Urine RBC (Auto) NEGATIVE NEGATIVE Urine RBC NONE /HPF Urine WBC RARE /HPF Urine Squamous Epithelial Cells 0-2 /HPF Urine Crystals PRESENT H /LPF Urine Amorphous Sediment FEW RORO PHOSPHATE H /LPF Urine Bacteria TRACE /HPF Urine Casts NONE /LPF Urine Mucus NEGATIVE /LPF Urine Culture Indicated NO White Blood Count 14.5 H 4.3-11.0 10^3/uL Red Blood Count 4.41 4.35-5.85 10^6/uL Hemoglobin 13.9 11.5-16.0 G/DL Hematocrit 39 35-52 % Mean Corpuscular Volume 89 80-99 FL Mean Corpuscular Hemoglobin 32 25-34 PG Mean Corpuscular Hemoglobin Concent 35 32-36 G/DL Red Cell Distribution Width 13.8 10.0-14.5 % Platelet Count 273 130-400 10^3/uL Mean Platelet Volume 11.7 H 7.4-10.4 FL Neutrophils (%) (Auto) 71 42-75 % Lymphocytes (%) (Auto) 18 12-44 % Monocytes (%) (Auto) 10 0-12 % Eosinophils (%) (Auto) 1 0-10 % Basophils (%) (Auto) 0 0-10 % Neutrophils # (Auto) 10.3 H 1.8-7.8 X 10^3 Lymphocytes # (Auto) 2.7 1.0-4.0 X 10^3 Monocytes # (Auto) 1.4 H 0.0-1.0 X 10^3 Eosinophils # (Auto) 0.1 0.0-0.3 10^3/uL Basophils # (Auto) 0.0 0.0-0.1 10^3/uL OB - Assessment/Plan/Diagnosis Assessment Assessment: labor Plan Plan: Expectant Management Other Plan 26 yo @ 36.0 wga admitted for labor Plan - AROM 1829 Clear - Started Ampicillin for unknown GBS - Expectant management Copy Copies To 1: GIGI GARCIA MD, HOLLY R MD Apr 07, 2017 18:46
[2017-04-07] MEDS ORDERED: OXYTOCIN/NORMAL SALINE 500 ML IV ONE (19:27)
[2017-04-07] MEDS ORDERED: OXYTOCIN/NORMAL SALINE 500 ML IV SCH ×2 (19:30→23:46)
[2017-04-07] MEDS ORDERED: LIDOCAINE/EPI 2% 1:200,00 (XYLOCAINE) 10 ML VIAL ONE (19:44)
--- NOTE | 2017-04-07 23:46 | OB Labor & Delivery Record ---
Vag Delivery Note Vag Delivery Note Date of Delivery: 04/07/17 Preoperative Diagnosis: Lashay Adame is a (26 /Para 3 / 2, Gestational Age (wks)36with onset of labor Postoperative Diagnosis: Same Surgeon: GIGI GARCIA Shell Molder: None Anesthesia: epidural Delivery Type: Findings: Female , compound presentation, face presentation Viable female infant, apgars 1/7/8, weight 5#14, 2675 grams Lacerations: right periurethral tear Intact placenta with 3 vessel cord. Nuchal cord x1, body cord or shoulder dystocia Estimated Blood Loss: 250 ml Complications: compound face presentation, labor Condition: Stable Description of Procedure: The patient is a 26 yo G3 now P3 @ 36.0 wga who presented in active labor. She was admitted and informed consent was obtained. Her labor course was remarkable for labor, unknown GBS, compound presentation. She progressed to complete dilatation and began to push. She was then set up for delivery. The 's head was delivered in face presentation in occiput posterior position. The shoulders and remainder of the 's body were then delivered without difficulty. Upon delivery, the head was held below the level of the perineum and the mouth and nares were bulb suctioned. The cord was doubly clamped and cut and the infant was handed off to the pediatric staff and taken to warmer. required oxygen and CPAP for transition and then titrated to room air within mins. An intact placenta with 3- vessel cord delivered via [place] and there was found to be minimal bleeding.~ Vigorous fundal massage was performed and the fundus was found to be firm. IV oxytocin was given wide open. Examination of the vagina and perineum revealed a right yumiko urethral laceration that did not require repair. Sponge, instrument and needle counts were correct. Mom and baby were both in stable condition in the labor suite. Vitals - Labs Vital Signs - I&O Vital Signs Date Time Temp Pulse Resp B/P (MAP) Pulse Ox O2 Delivery O2 Flow Rate FiO2 04/07/17 19:20 105 18 121/78 99 Room Air 04/07/17 19:05 100 18 131/76 98 Room Air 04/07/17 18:50 90 18 114/78 96 Room Air 04/07/17 18:35 86 18 117/74 94 Room Air 04/07/17 18:20 85 18 122/72 90 Room Air 11/13/17 18:05 90 18 117/75 91 Room Air 13/17 17:50 88 18 112/72 97 Room Air 13/17 17:35 89 18 115/73 97 Room Air 13/17 17:20 79 18 117/74 100 Room Air 13/17 17:05 89 18 118/72 98 Room Air 13/17 16:50 85 18 112/73 97 Room Air 13/17 16:35 93 18 117/77 97 Room Air 13/17 16:20 83 18 115/74 98 Room Air 13/17 16:05 92 18 114/66 97 Room Air 13/17 15:51 85 18 115/68 98 Room Air 13/17 15:35 98.4 78 18 118/57 97 Room Air 04/07/17 15:05 76 18 114/81 97 Room Air 04/07/17 14:50 83 18 110/76 98 Room Air 04/07/17 14:35 80 18 109/70 96 Room Air 04/07/17 14:20 98.1 82 18 112/74 97 Room Air 04/07/17 14:05 79 18 112/62 98 Room Air 13/17 13:50 87 18 112/70 99 Room Air 04/07/17 13:35 93 18 114/69 98 Room Air 04/07/17 13:20 90 18 109/69 98 Room Air 04/07/17 13:05 86 18 116/73 99 Room Air 04/07/17 12:48 86 18 119/78 98 Room Air 04/07/17 12:45 90 18 117/76 99 Room Air 13/17 12:42 83 18 117/73 Room Air 13/17 12:40 18 111/74 Room Air 13/17 12:36 83 18 107/70 96 Room Air 13/17 12:33 85 18 112/65 97 Room Air 13/17 12:30 86 18 112/66 97 Room Air 13/17 12:27 87 18 118/67 96 Room Air 13/17 12:25 93 18 113/64 96 Room Air 13/17 12:21 83 18 114/69 97 Room Air 13/17 12:15 91 18 107/67 97 Room Air 04/07/17 12:12 93 18 107/70 Room Air 04/07/17 12:10 95 18 110/72 97 Room Air 04/07/17 12:06 87 18 114/78 97 Room Air 04/07/17 12:03 98.6 85 18 111/71 Room Air 04/07/17 12:00 85 18 111/70 Room Air 04/07/17 11:59 86 18 122/79 Room Air 04/07/17 11:46 83 18 112/75 Room Air 04/07/17 11:21 88 18 120/75 Room Air 04/07/17 07:42 98.0 84 18 127/68 04/07/17 04:44 16 Room Air 04/07/17 04:10 97.5 84 20 114/74 Room Air 04/07/17 01:40 97.4 95 18 112/68 Room Air I & O 04/08/17 07:00 Intake Total 1100 ml Balance 1100 ml Labs Laboratory Tests 04/07/17 01:35: Urine Color YELLOW, Urine Clarity CLEAR, Urine pH 8, Urine Specific [place] 1.015L, Urine Protein NEGATIVE, Urine Glucose (UA) NEGATIVE, Urine Ketones NEGATIVE, Urine Nitrite NEGATIVE, Urine Bilirubin NEGATIVE, Urine Urobilinogen NORMAL, Urine Leukocyte Esterase NEGATIVE, Urine RBC (Auto) NEGATIVE, Urine RBC NONE, Urine WBC RARE, Urine Squamous Epithelial Cells 0-2, Urine Crystals PRESENTH, Urine Amorphous Sediment FEW RORO PHOSPHATEH, Urine Bacteria TRACE, Urine Casts NONE, Urine Mucus NEGATIVE, Urine Culture Indicated NO 04/07/17 10:35: White Blood Count 14.5H, Red Blood Count 4.41, Hemoglobin 13.9, Hematocrit 39, Mean Corpuscular Volume 89, Mean Corpuscular Hemoglobin 32, Mean Corpuscular Hemoglobin Concent 35, Red Cell Distribution Width 13.8, Platelet Count 273, Mean Platelet Volume 11.7H, Neutrophils (%) (Auto) 71, Lymphocytes (%) (Auto) 18 , Monocytes (%) (Auto) 10, Eosinophils (%) (Auto) 1, Basophils (%) (Auto) 0, Neutrophils # (Auto) 10.3H, Lymphocytes # (Auto) 2.7, Monocytes # (Auto) 1.4H, Eosinophils # (Auto) 0.1, Basophils # (Auto) 0.0 04/07/17 18:55: Urine Opiates Screen NEGATIVE, Urine Oxycodone Screen NEGATIVE, Urine Methadone Screen NEGATIVE, Urine Propoxyphene Screen NEGATIVE, Urine Barbiturates Screen NEGATIVE, Ur Tricyclic Antidepressants Screen NEGATIVE, Urine Phencyclidine Screen NEGATIVE, Urine Amphetamines Screen NEGATIVE, Urine Methamphetamines Screen NEGATIVE, Urine Benzodiazepines Screen NEGATIVE, Urine Cocaine Screen NEGATIVE, Urine Cannabinoids Screen NEGATIVE GIGI GARCIA MD Apr 07, 2017 23:45
[2017-04-08] VITALS (11 sets, daily range): BP systolic 91–122; BP diastolic 54–72
[2017-04-08] MEDS ORDERED: WITCH HAZEL(TUCKS) 40 EA JAR TOP PRN
[2017-04-08] MEDS ORDERED: MEASLES,MUMPS,RUBELLA 1 EA INJ SQ ONE
[2017-04-08] MEDS ORDERED: BENZOCAINE/MENTHOL (DERMOPLAST) 56 ML CAN TP PRN
[2017-04-08] MEDS: IBUPROFEN 600 MG (MOTRIN) TAB PO SCH ×5 (00:10→23:44)
[2017-04-08] MEDS ORDERED: CATHETER FLUSH 10 ML SYR IV SCH (06:00)
[2017-04-08 06:23] LABS: BASOPHILS % (AUTO) 0 % (0-10); EOSINOPHILS # (AUTO) 0.1 10^3/uL (0.0-0.3); EOSINOPHILS % (AUTO) 1 % (0-10); LYMPHOCYTES # (AUTO) 2.5 X 10^3 (1.0-4.0); LYMPHOCYTES % (AUTO) 23 % (12-44); MEAN CORPUSCULAR HEMOGLOBIN 32 PG (25-34); MEAN CORPUSCULAR HGB CONC 35 G/DL (32-36); MEAN CORPUSCULAR VOLUME 91 FL (80-99); MEAN PLATELET VOLUME 11.7 FL (7.4-10.4); MONOCYTES # (AUTO) 1.1 X 10^3 (0.0-1.0); MONOCYTES % (AUTO) 10 % (0-12); NEUTROPHILS # (AUTO) 7.2 X 10^3 (1.8-7.8); NEUTROPHILS % (AUTO) 66 % (42-75); PLATELET COUNT 234 10^3/uL (130-400); RED BLOOD COUNT 3.57 10^6/uL (4.35-5.85); RED CELL DISTRIBUTION WIDTH 13.6 % (10.0-14.5); WHITE BLOOD COUNT 10.9 10^3/uL (4.3-11.0)
[2017-04-08] MEDS ORDERED: morphine INJ 10 MG/ML 1ML (SYR OR VIAL) IV NR (07:30)
--- NOTE | 2017-04-08 14:08 | Anesthesia-Regional Post-Op ---
Regional Patient Condition Mental Status: Alert, Oriented x3 Circulation: Same as Pre-Op Headache: Absent Sensation: Full Recovery Motor Block: Absent Post Op Complications Complications None Follow Up Care/Instructions Patient Instructions None needed. Anesthesia/Patient Condition Patient is doing well, no complaints, stable vital signs, no apparent adverse anesthesia problems. No complications reported per nursing. [place] [facility] [place] HOPE SANDERS CRNA Apr 08, 2017 14:08
--- NOTE | 2017-04-08 16:04 | Progress Note (SOAP) ---
Subjective Subjective/Events-last exam PPD#1, denies concerns. Bleeding minimal, mild pain. No shortness of breath or leg pain. No dizziness. Review of Systems Date Seen by Provider: Apr 08, 2017 Time Seen by Provider: 09:30 Objective Exam Last Set of Vital Signs Vital Signs Date Time Temp Pulse Resp B/P (MAP) Pulse Ox O2 Delivery O2 Flow Rate FiO2 04/08/17 11:56 98.4 75 18 103/66 98 Room Air Capillary Refill : I&O Intake and Output 04/09/17 00:00 Intake Total 500 ml Balance 500 ml Intake IV Total 500 ml General: Alert, No Acute Distress Lungs: Clear to Auscultation, Normal Air Movement Heart: Regular Rate, No Murmurs Abdomen: Other (fundus firm below umblicus) Extremities: No Edema Neuro: Normal Speech Results/Procedures Lab Laboratory Tests 04/07/17 18:55: Urine Opiates Screen NEGATIVE, Urine Oxycodone Screen NEGATIVE, Urine Methadone Screen NEGATIVE, Urine Propoxyphene Screen NEGATIVE, Urine Barbiturates Screen NEGATIVE, Ur Tricyclic Antidepressants Screen NEGATIVE, Urine Phencyclidine Screen NEGATIVE, Urine Amphetamines Screen NEGATIVE, Urine Methamphetamines Screen NEGATIVE, Urine Benzodiazepines Screen NEGATIVE, Urine Cocaine Screen NEGATIVE, Urine Cannabinoids Screen NEGATIVE 04/08/17 05:34: White Blood Count 10.9, Red Blood Count 3.57L, Hemoglobin 11.4L, Hematocrit 33L , Mean Corpuscular Volume 91, Mean Corpuscular Hemoglobin 32, Mean Corpuscular Hemoglobin Concent 35, Red Cell Distribution Width 13.6, Platelet Count 234, Mean Platelet Volume 11.7H, Neutrophils (%) (Auto) 66, Lymphocytes (%) (Auto) 23 , Monocytes (%) (Auto) 10, Eosinophils (%) (Auto) 1, Basophils (%) (Auto) 0, Neutrophils # (Auto) 7.2, Lymphocytes # (Auto) 2.5, Monocytes # (Auto) 1.1H, Eosinophils # (Auto) 0.1, Basophils # (Auto) 0.0 Microbiology 04/07/17 Urine Culture - Preliminary, Resulted Assessment/Plan Assessment/Plan Admission Dx labor Plan s/p spontaneous vaginal delivery, - asymptomatic anemia, continue routine care Clinical Quality Measures DVT/VTE Risk/Contraindication: Risk Factor Score Per Nursin RFS Level Per Nursing on Admit: 2=Moderate DIPIKA,AURA N MD Apr 08, 2017 4:04 pm
[2017-04-09 06:15] VITALS: BP 85/54
[2017-04-09] MEDS: IBUPROFEN 600 MG (MOTRIN) TAB PO SCH ×3 (06:15→18:36)
[2017-04-09 10:55] VITALS: BP 119/76
[2017-04-09 13:30] VITALS: BP 114/69
[2017-04-09] MEDS ORDERED: IBUP-1773 PO (15:57)
--- NOTE | 2017-04-09 15:59 | Discharge Instructions ---
Discharge Inst-Women's Serv Depart Medications New, Converted or Re-Newed RX: Transmitted to Pharmacy New Medications: Ibuprofen (Ibuprofen) 600 Mg Tablet 600 MG PO Q6H, #60 TAB 0 Refills Continued Medications: Acetaminophen (Tylenol) 325 Mg Tablet 325 MG PO PRN, TAB Cetirizine HCl (Zyrtec) 10 Mg Capsule 10 MG PO DAILY, CAP Fluoxetine HCl (Prozac) 20 Mg Capsule 10 MG PO DAILY, CAP Vit W-Ca,Fe,FA(<1 mg) ( Vitamins) 1 Each Tablet 1 EACH PO DAILY, TAB Discontinued Medications: Hydroxyprogesterone Caproate (Tulsita) 250 Mg/1 Ml Vial 250 MG IM WEEK, VIAL Follow Up/Instructions Goal/Follow Up: Follow up with Dr. Villafuerte in 6 weeks for visit. Activity Activity: Activity as Tolerated (avoid strenuous activity x 6 weeks) Nothing Inside Vagina: No Douching, No Shedd, No Tampons Diet Discharge Diet: Regular Diet Symptoms to Report to : Bleeding Excessive, Fever Over 101 Degrees F, Pain/ Pressure in Chest, Vaginal Bleeding Increase, Vaginal Discharge Foul, Shortness of Breath For Any Problems or Questions: Contact Your Physician Copies To 1: GIGI VILLAFUERTE MDOCH,AURA Barragan MD Apr 09, 2017 3:59 pm
--- NOTE | 2017-04-09 16:01 | Discharge Summary ---
Diagnosis/Chief Complaint Date of Admission Apr 07, 2017 at 10:44 am Date of Discharge Apr 09, 2017 Admission Diagnosis Admission Diagnosis labor at 36 weeks Discharge Diagnosis s/p Spontaneous vaginal delivery asymptomatic anemia Chief Complaint/HPI Chief Complaint/HPI 26 yo female presented at 36 weeks gestation with contractions, found to be making cervical change. Discharge Summary-Simple/Stand Procedures Spontaneous vaginal delivery Discharge Physical Examination Allergies: Coded Allergies: NKANo Known Allergies (Unverified Allergy, Mild, 09/29/08) Vitals & I&Os Vital Sign - Last 12Hours Date Time Temp Pulse Resp B/P (MAP) Pulse Ox O2 Delivery O2 Flow Rate FiO2 04/09/17 13:30 98.7 84 18 114/69 98 Room Air General Appearance: Alert, No Acute Distress Respiratory: Clear to Auscultation, Normal Air Movement Cardiovascular: Regular Rate, No Murmurs Neuro: Normal Gait, Normal Speech Psych/Mental Status: Mental Status NL Hospital Course See final discharge diagnosis. Labs Laboratory Tests Test 04/07/17 18:55 04/08/17 05:34 Range/Units Urine Opiates Screen NEGATIVE NEGATIVE Urine Oxycodone Screen NEGATIVE NEGATIVE Urine Methadone Screen NEGATIVE NEGATIVE Urine Propoxyphene Screen NEGATIVE NEGATIVE Urine Barbiturates Screen NEGATIVE NEGATIVE Ur Tricyclic Antidepressants Screen NEGATIVE NEGATIVE Urine Phencyclidine Screen NEGATIVE NEGATIVE Urine Amphetamines Screen NEGATIVE NEGATIVE Urine Methamphetamines Screen NEGATIVE NEGATIVE Urine Benzodiazepines Screen NEGATIVE NEGATIVE Urine Cocaine Screen NEGATIVE NEGATIVE Urine Cannabinoids Screen NEGATIVE NEGATIVE White Blood Count 10.9 4.3-11.0 10^3/uL Red Blood Count 3.57 L 4.35-5.85 10^6/uL Hemoglobin 11.4 L 11.5-16.0 G/DL Hematocrit 33 L 35-52 % Mean Corpuscular Volume 91 80-99 FL Mean Corpuscular Hemoglobin 32 25-34 PG Mean Corpuscular Hemoglobin Concent 35 32-36 G/DL Red Cell Distribution Width 13.6 10.0-14.5 % Platelet Count 234 130-400 10^3/uL Mean Platelet Volume 11.7 H 7.4-10.4 FL Neutrophils (%) (Auto) 66 42-75 % Lymphocytes (%) (Auto) 23 12-44 % Monocytes (%) (Auto) 10 0-12 % Eosinophils (%) (Auto) 1 0-10 % Basophils (%) (Auto) 0 0-10 % Neutrophils # (Auto) 7.2 1.8-7.8 X 10^3 Lymphocytes # (Auto) 2.5 1.0-4.0 X 10^3 Monocytes # (Auto) 1.1 H 0.0-1.0 X 10^3 Eosinophils # (Auto) 0.1 0.0-0.3 10^3/uL Basophils # (Auto) 0.0 0.0-0.1 10^3/uL Discharge Instructions to patient/family Please see electronic discharge instructions given to patient. Discharge Medications Reviewed and agree with Discharge Medication list on patient's Discharge Instruction sheet Clinical Quality Measures DVT/VTE Risk/Contraindication: Risk Factor Score Per Nursin RFS Level Per Nursing on Admit: 2=Moderate Copy Copies To 1: GIGI GARCIA MD, BETHANY N MD Apr 09, 2017 4:01 pm
[2017-04-09 18:30] VITALS: BP 112/70
[2017-04-09 18:45] VITALS: BP 112/70
== END 2017-04-09 18:45 | disposition home or self-care (01) | DRG 775 ==
LOC: LDRP 01:25 → WSo 01:25 → LDRP 10:44
PROVIDERS: ADMIT Family Medicine; ATTEND Family Medicine
PROC: 10E0XZZ Delivery of Products of Conception, External Approach (ICD-10-PCS; principal; 2017-04-07)
DX: O60.14X0 Preterm labor third trimester with preterm delivery third trimester, not applicable or unspecified (principal); O69.81X0 Labor and delivery complicated by cord around neck, without compression, not applicable or unspecified; O32.6XX0 Maternal care for compound presentation, not applicable or unspecified; O32.3XX0 Maternal care for face, brow and chin presentation, not applicable or unspecified; O90.81 Anemia of the puerperium; Z37.0 Single live birth; Z3A.36 36 weeks gestation of pregnancy
CPT/HCPCS: 36415; 80306; 81000; 85025; 86850; 86900; 86901; 87088; 99212

== ENCOUNTER 2018-03-07 18:32 | Emergency (ER) | payer SELFPAY ==
[~2018-03-07] VITALS: Ht 162.6 cm; Wt 108.9 kg
[~2018-03-07 18:32] MED LIST changes: +ACET325T38 PO; +IBUP-1773 PO
[2018-03-07] MEDS ORDERED: RT-ALBUTEROL SULF 2.5 MG/3 ML PRE-MIX VIAL INH STA (20:19)
--- NOTE | 2018-03-07 20:32 | ED Cough/URI ---
General Chief Complaint: Cough/Cold/Flu Symptoms Stated Complaint: CONGESTION,COUGH,WHEEZING Nursing Triage Note: pt presents to ed with complaints of cough/soa and wheezing starting yesterday. Source: patient, family Exam Limitations: no limitations History of Present Illness Date Seen by Provider: Mar 07, 2018 Time Seen by Provider: 20:19 Initial Comments Patient presents to ER by private conveyance with 2 days progressively worsening chest congestion cough fevers chills malaise bodyaches. She does not have a history of asthma or COPD. She smokes about half pack cigarettes per day. She's feeling some wheezing. She does not take albuterol or Proventil air. Allergies and Home Medications Allergies Coded Allergies: NKANo Known Allergies (Unverified Allergy, Mild, 09/29/08) Home Medications No Active Prescriptions or Reported Meds Patient Home Medication List Home Medication List Reviewed: Yes Review of Systems Review of Systems Constitutional: chills; No diaphoresis; fever, malaise EENTM: hoarseness, nose congestion, throat pain; No ear discharge, No hearing loss, No ear pain Respiratory: cough, short of breath, wheezing Cardiovascular: No chest pain, No palpitations Gastrointestinal: No abdominal pain, No constipation Genitourinary: No discharge, No dysuria Musculoskeletal: No back pain, No joint pain Past Pcbzzwl-Zdjqpo-Ujumci Hx Patient Social History Alcohol Use: Denies Use Recreational Drug Use: No Drug of Choice: marijuana, "dope" Smoking Status: Current Everyday Smoker Type Used: Cigarettes Recent Foreign Travel: No Contact w/Someone Who Travel: No Recent Infectious Disease Expo: No Recent Hopitalizations: No Physical Abuse: No Sexual Abuse: No Mistreated: No Fear: No Immunizations Up To Date Tetanus Booster (TDap): Less than 5yrs PED Vaccines UTD: No Date of Influenza Vaccine: Mar 07, 2017 Seasonal Allergies Seasonal Allergies: Yes Past Medical History Surgeries: Yes (tubes in ears ) Adenoidectomy, Tonsillectomy Respiratory: Yes Asthma Cardiac: No High Cholesterol Neurological: No : No Reproductive Disorders: No Female Reproductive Disorders: Denies Sexually Transmitted Disease: No HIV/AIDS: No Genitourinary: No UTI-Chronic Gastrointestinal: No Musculoskeletal: No Chronic Back Pain Endocrine: No HEENT: Yes Chronic Ear Infection Hearing Impairment: Denies Cancer: No Psychosocial: Yes (Prozac ) Depression Integumentary: No Blood Disorders: No Adverse Reaction/Blood Tranf: No (N/a) Family Medical History HEART STENTS 19 FATHER Hypertension 19 MOTHER Myocardial infarction 19 FATHER Heart Disease, Diabetes, Hypertension Physical Exam Vital Signs - First Documented 03/07/18 19:51 Temp 98.9 Pulse 100 Resp 16 B/P (MAP) 124/81 (95) Pulse Ox 99 O2 Delivery Room Air Capillary Refill : Less Than 3 Seconds Height: 5'4.00" Weight: 240lbs. 4.0oz. 108.105142mj; 34.7 BMI Method:Stated General Appearance: WD/WN, no apparent distress Eyes: Bilateral Eye Normal Inspection, Bilateral Eye PERRL, Bilateral Eye EOMI HEENT: PERRL/EOMI, normal ENT inspection, TMs normal, pharyngeal erythema Neck: non-tender, full range of motion, supple, normal inspection Respiratory: chest non-tender, no respiratory distress, no accessory muscle use , wheezing, expiration Cardiovascular: normal peripheral pulses, regular rate, rhythm Neurologic/Psychiatric: alert, normal mood/affect, oriented x 3 Skin: normal color, warm/dry Progress/Results/Core Measures Suspected Sepsis Recent Fever Within 48 Hours: No Infection Criteria Present: None New/Unexplained Altered Menta: No Sepsis Screen: No Definite Risk SIRS Temperature:98.9 Pulse: 100 Respiratory Rate: 16 Blood Pressure 124 /81 Mean: 95 Results/Orders Lab Results Laboratory Tests Test 03/07/18 20:20 Range/Units Group A Streptococcus Screen NEGATIVE NEGATIVE Micro Results Microbiology 03/07/18 Influenza Types A,B Antigen (EMILY) - Final, Complete My Orders Orders - HECTOR MCNEIL Albuterol Pre-Mix Nebs (Rt) (Proventil (03/07/18 20:19) Svn Small Volume Nebulizer (03/07/18 20:19) Influenza A And B Antigens (03/07/18 20:19) Rapid Strep A Screen (03/07/18 20:19) Chest Pa/Lat (2 View) (03/07/18 20:32) Vital Signs/I&O 03/07/18 03/07/18 03/07/18 19:51 19:51 20:29 Temp 98.9 Pulse 100 Resp 16 B/P (MAP) 124/81 (95) Pulse Ox 99 98 O2 Delivery Room Air Room Air Capillary Refill : Less Than 3 Seconds Blood Pressure Mean: 95 Progress Note : Time: 20:31 Progress Note Sore throat upper respiratory tract infection and some wheezing heard. Regular her albuterol treatment check a strep and influenza and chest x-ray. Bronchitis or pneumonia vs uri. Diagnostic Imaging Diagonstic Imaging: Xray Plain Films/CT/US/NM/MRI: chest (2v) Comments VIA [facility]. [place], [place] NAME: JOE FAULKNER [facility] REC#: [id number] PT STATUS: REG ER : 1990 PHYSICIAN: HECTOR MCNEIL MD ADMIT DATE: 03/07/18/ER Draft Date of Exam:03/07/18 CHEST PA/LAT (2 VIEW) INDICATION: Short of air for two weeks. Cough. EXAMINATION: Two views of the chest were obtained. FINDINGS: Normal heart size and vascularity. There is mild bilateral perihilar parabronchial thickening. There is patchy airspace disease seen in the right lower lobe inferior to the right hilum. The left lung is clear. There is no effusion or pneumothorax. IMPRESSION: There is a right infrahilar infiltrate which is a change from the prior study from 05/20/2016. Dictated on workstation # [id number] Dict: 03/07/182053 Trans: 03/07/182055 [facility] [id number] Interpreted by: KAMRAN COLE MD Electronically signed by: Reviewed: Reviewed by Me Departure Impression Primary Impression: Pneumonia Qualified Codes: J18.1 - Lobar pneumonia, unspecified organism Disposition: HOME, SELF-CARE Condition: Stable Departure-Patient Inst. Decision time for Depature: 21:01 Referrals: ARIEL IRVIN DO (PCP/Family) Primary Care Physician Patient Instructions: Pneumonia, Adult (DC) Add. 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 signals intelligence superintendent the albuterol and use it 1 vial every 4 hours through your nebulizer machine as needed for wheezing, shortness of breath or congestion. Follow-up with her primary care doctor in the next 3-5 days for recheck. All discharge instructions reviewed with patient and/or family. Voiced understanding. Scripts Albuterol Sulfate (Albuterol Sulfate) 2.5 Mg/3 Ml Vial.neb 2.5 MG IH Q4H PRN for WHEEZING for 7 Days, #30 EA 0 Refills Prov: HECTOR MCNEIL 03/07/18 Cefdinir (Cefdinir) 300 Mg Capsule 300 MG PO BID for 7 Days, #14 CAP 0 Refills Prov: HECTOR MCNEIL 03/07/18 Azithromycin (Azithromycin) 250 Mg Tablet 250 MG PO DAILY, #4 TAB 0 Refills Prov: HECTOR MCNEIL 03/07/18 Work/School Note: Work Release Form Date Seen in the Emergency Department: Mar 07, 2018 Return to Work: Mar 11, 2018 Restrictions: No Restrictions Copy Copies To 1: ARIEL IRVIN TITUS J Mar 07, 2018 20:31
--- NOTE | 2018-03-07 20:57 | Diagnostic Imaging Report ---
INDICATION: Short of air for two weeks. Cough. EXAMINATION: Two views of the chest were obtained. FINDINGS: Normal heart size and vascularity. There is mild bilateral perihilar parabronchial thickening. There is patchy airspace disease seen in the right lower lobe inferior to the right hilum. The left lung is clear. There is no effusion or pneumothorax. IMPRESSION: There is a right infrahilar infiltrate which is a change from the prior study from 05/20/2016. Dictated by: Dictated on workstation # [id number]
[2018-03-07] MEDS ORDERED: AZIT250T12 PO (21:03)
[2018-03-07] MEDS ORDERED: CEFD300C3 PO (21:03)
[2018-03-07] MEDS ORDERED: ALBU2.5V4 IH (21:05)
[2018-03-07] MEDS ORDERED: AZITHROMYCIN 250 MG TAB (ZITHROMAX) PO ONE (21:30)
[2018-03-07] MEDS ORDERED: cefTRIAXone FOR IV USE 1,000 MG in NS (IVPB) 50 ML IV ONE (21:30)
[2018-03-07] MEDS ORDERED: LIDOCAINE 1% INJ 20 ML 20 ML VIAL ONE (21:36)
[2018-03-07] MEDS ORDERED: cefTRIAXone 1,000 MG/2.86 ml vial (IM ONLY) IM STA (21:36)
[2018-03-07 22:00] VITALS: BP 126/90
== END 2018-03-07 22:00 | disposition home or self-care (01) ==
LOC: EDUNIT# 18:32 → ER 18:33
DX: J18.9 Pneumonia, unspecified organism (principal); J44.9 Chronic obstructive pulmonary disease, unspecified; F32.9 Major depressive disorder, single episode, unspecified; E78.00 Pure hypercholesterolemia, unspecified; F17.210 Nicotine dependence, cigarettes, uncomplicated; Z91.14 Patient's other noncompliance with medication regimen; Z82.49 Family history of ischemic heart disease and other diseases of the circulatory system; Z87.440 Personal history of urinary (tract) infections; Z90.89 Acquired absence of other organs
CPT/HCPCS: 71046; 87430; 87804; 94640

== ENCOUNTER 2018-10-07 10:58 | Emergency (ER) | payer MEDICAID, OTHER ==
[~2018-10-07] VITALS: Ht 162.6 cm; Wt 113.4 kg
[~2018-10-07 10:58] MED LIST changes: +ALBU2.5V4 IH; +AZIT250T12 PO; +CEFD300C3 PO
[2018-10-07] MEDS ORDERED: NS IV 1000 ML 1,000 ML IV SCH (12:00)
[2018-10-07] MEDS ORDERED: KETOROLAC 30 MG/ML VIAL IVP ONE (12:00)
[2018-10-07 12:12] LABS: BASOPHILS % (AUTO) 0 % (0-10); EOSINOPHILS # (AUTO) 0.2 10^3/uL (0.0-0.3); EOSINOPHILS % (AUTO) 1 % (0-10); HEMATOCRIT 44 % (35-52); HEMOGLOBIN 15.5 G/DL (11.5-16.0); LYMPHOCYTES # (AUTO) 2.9 X 10^3 (1.0-4.0); LYMPHOCYTES % (AUTO) 20 % (12-44); MEAN CORPUSCULAR HEMOGLOBIN 31 PG (25-34); MEAN CORPUSCULAR HGB CONC 35 G/DL (32-36); MEAN CORPUSCULAR VOLUME 89 FL (80-99); MEAN PLATELET VOLUME 10.8 FL (7.4-10.4); MONOCYTES # (AUTO) 1.1 X 10^3 (0.0-1.0); MONOCYTES % (AUTO) 8 % (0-12); NEUTROPHILS % (AUTO) 71 % (42-75); PLATELET COUNT 287 10^3/uL (130-400); RED CELL DISTRIBUTION WIDTH 14.8 % (10.0-14.5); WHITE BLOOD COUNT 14.2 10^3/uL (4.3-11.0)
[2018-10-07 12:31] LABS: BILIRUBIN,URINE NEGATIVE (NEGATIVE); CLARITY,URINE CLEAR; COLOR,URINE YELLOW; GLUCOSE, URINE (UA) NEGATIVE (NEGATIVE); KETONES,URINE NEGATIVE (NEGATIVE); LEUKOCYTE ESTERASE ,URINE 1+ (NEGATIVE); NITRITE,URINE NEGATIVE (NEGATIVE); PH,URINE 5 (5-9); PROTEIN,URINE NEGATIVE (NEGATIVE); UROBILINOGEN,URINE NORMAL (NORMAL)
[2018-10-07 12:36] LABS: ALANINE AMINOTRANSFERASE 27 U/L (0-55); ALKALINE PHOSPHATASE 132 U/L (40-136); AMYLASE 49 U/L (25-125); BILIRUBIN,TOTAL 0.3 MG/DL (0.1-1.0); BUN/CREATININE RATIO 10; CALCIUM 9.7 MG/DL (8.5-10.1); CARBON DIOXIDE 19 MMOL/L (21-32); CHLORIDE 111 MMOL/L (98-107); CREATININE SERUM 0.69 MG/DL (0.60-1.30); GFR ESTIMATED > 60; GLUCOSE 87 MG/DL (70-105); LIPASE 19 U/L (8-78); POTASSIUM 3.9 MMOL/L (3.6-5.0); SODIUM 141 MMOL/L (135-145); TOTAL PROTEIN 7.4 GM/DL (6.4-8.2)
[2018-10-07 12:41] LABS: BACTERIA,URINE TRACE /HPF; WBC,URINE 0-2 /HPF
--- NOTE | 2018-10-07 12:59 | NUR ---
TO ROOM LYING ON SIDE FLUIDS CON'T TO INFUSE. INFORMED SHE WILL BE HAVING A CT SCAN.
[2018-10-07] MEDS ORDERED: IOHEXOL 350 MG/ML 100 ML (OMNIPAQUE 350) VIAL IV ONE (13:00)
[2018-10-07] MEDS ORDERED: HOLD METFORMIN - RECEIVED CONTRAST 20 ML VIAL IV SCH (13:00)
[2018-10-07 13:20] LABS: LYMPHOCYTES % (MANUAL) 24 %; MONOCYTES % (MANUAL) 3 %; NEUTROPHILS % (MANUAL) 72 %
[2018-10-07 13:21] LABS: REACTIVE LYMPHOCYTES 1 %
[2018-10-07 13:22] LABS: RBC MORPH NORMAL; TOXIC GRANULATION/VACUOLAZATIO 1+
--- NOTE | 2018-10-07 13:54 | ED Abdominal Pain ---
General Chief Complaint: Abdominal/GI Problems Stated Complaint: ABD PAIN Nursing Triage Note: AMB TO ROOM C/O R SIDE PAIN SINCE FRIDAY. Sepsis Screen: No Definite Risk Source of Information: Patient Exam Limitations: No Limitations History of Present Illness Date Seen by Provider: October 07, 2018 Time Seen by Provider: 11:57 Initial Comments 28-year-old female who presents to the emergency room with complaints of right lower quadrant abdominal pain that radiates to her right flank for the past 3 days. She denies nausea, vomiting, fevers, or trouble urinating. Timing/Duration: 2-3 Days Severity/Quality: Aching Location: RLQ Radiation: Flank (right) Associated Symptoms: Denies Symptoms Allergies and Home Medications Allergies Coded Allergies: NKANo Known Allergies (Unverified Allergy, Mild, 09/29/08) Home Medications Albuterol Sulfate 2.5 Mg/3 Ml Vial.neb, 2.5 MG IH Q4H PRN for WHEEZING Prescribed by: HECTOR MCNEIL on 03/07/182104 Azithromycin 250 Mg Tablet, 250 MG PO DAILY Prescribed by: HECTOR MCNEIL on 03/07/182102 Cefdinir 300 Mg Capsule, 300 MG PO BID Prescribed by: HECTOR MCNEIL on 03/07/182102 Ciprofloxacin HCl 500 Mg Tablet, 500 MG PO BID Prescribed by: MARIA E ESQUIVEL on 10/07/18 144 Hydrocodone Bit/Acetaminophen 1 Tab Tab, 1 EACH PO Q4-6HR PRN for PAIN-MODERATE Prescribed by: MARIA E ESQUIVEL on 10/07/18 144 Metronidazole 500 Mg Tablet, 500 MG PO TID Prescribed by: MARIA E ESQUIVEL on 10/07/18 144 Patient Home Medication List Home Medication List Reviewed: Yes Review of Systems Review of Systems Constitutional: see HPI; No chills, No fever Gastrointestinal: See HPI, Abdominal Pain All Other Systems Reviewed Negative Unless Noted: Yes Past Qnepuyn-Tuppcp-Hxjxfh Hx Past Med/Social Hx: Reviewed Nursing Past Med/Soc Hx Patient Social History Alcohol Use: Denies Use Recreational Drug Use: No Drug of Choice: marijuana, "dope" Smoking Status: Never a Smoker Type Used: Cigarettes Recent Foreign Travel: No Contact w/Someone Who Travel: No Recent Infectious Disease Expo: No Recent Hopitalizations: No Immunizations Up To Date Tetanus Booster (TDap): Less than 5yrs PED Vaccines UTD: No Date of Influenza Vaccine: Mar 07, 2017 Seasonal Allergies Seasonal Allergies: Yes Past Medical History Surgeries: Yes (tubes in ears ) Adenoidectomy, Tonsillectomy Respiratory: Yes Asthma Cardiac: No High Cholesterol Neurological: No Reproductive Disorders: No Female Reproductive Disorders: Denies Sexually Transmitted Disease: No HIV/AIDS: No Genitourinary: No UTI-Chronic Gastrointestinal: No Musculoskeletal: No Chronic Back Pain Endocrine: No HEENT: Yes Chronic Ear Infection Hearing Impairment: Denies Cancer: No Psychosocial: Yes (Prozac ) Depression Integumentary: No Blood Disorders: No Adverse Reaction/Blood Tranf: No (N/a) Family Medical History Reviewed Nursing Family Hx HEART STENTS 19 FATHER Hypertension 19 MOTHER Myocardial infarction 19 FATHER Heart Disease, Diabetes, Hypertension Physical Exam Vital Signs Vital Signs - First Documented 10/07/18 11:52 Temp 96.7 Pulse 83 Resp 18 B/P (MAP) 118/87 (97) Pulse Ox 97 O2 Delivery Room Air Capillary Refill : Less Than 3 Seconds Height/Weight/BMI Height: 5'4.00" Weight: 250lbs. 4.0oz. 113.926028bz; 34.7 BMI Method:Stated General Appearance: WD/WN, no apparent distress Respiratory: chest non-tender, lungs clear, normal breath sounds, no respiratory distress, no accessory muscle use Cardiovascular: normal peripheral pulses, regular rate, rhythm, no edema, no gallop, no JVD, no murmur Gastrointestinal: normal bowel sounds, soft, no organomegaly, no pulsatile mass , tenderness (right lower quadrant tenderness) Extremities: normal capillary refill Neurologic/Psychiatric: alert, normal mood/affect, oriented x 3 Skin: normal color, warm/dry Progress/Results/Core Measures Results/Orders Lab Results Laboratory Tests Test 10/07/18 12:02 10/07/18 12:25 Range/Units White Blood Count 14.2 H 4.3-11.0 10^3/uL Red Blood Count 4.95 4.35-5.85 10^6/uL Hemoglobin 15.5 11.5-16.0 G/DL Hematocrit 44 35-52 % Mean Corpuscular Volume 89 80-99 FL Mean Corpuscular Hemoglobin 31 25-34 PG Mean Corpuscular Hemoglobin Concent 35 32-36 G/DL Red Cell Distribution Width 14.8 H 10.0-14.5 % Platelet Count 287 130-400 10^3/uL Mean Platelet Volume 10.8 H 7.4-10.4 FL Neutrophils (%) (Auto) 71 42-75 % Lymphocytes (%) (Auto) 20 12-44 % Monocytes (%) (Auto) 8 0-12 % Eosinophils (%) (Auto) 1 0-10 % Basophils (%) (Auto) 0 0-10 % Neutrophils # (Auto) 10.0 H 1.8-7.8 X 10^3 Lymphocytes # (Auto) 2.9 1.0-4.0 X 10^3 Monocytes # (Auto) 1.1 H 0.0-1.0 X 10^3 Eosinophils # (Auto) 0.2 0.0-0.3 10^3/uL Basophils # (Auto) 0.0 0.0-0.1 10^3/uL Neutrophils % (Manual) 72 % Lymphocytes % (Manual) 24 % Monocytes % (Manual) 3 % Reactive Lymphocytes 1 % Toxic Granulation 1+ Blood Morphology Comment NORMAL Sodium Level 141 135-145 MMOL/L Potassium Level 3.9 3.6-5.0 MMOL/L Chloride Level 111 H 98-107 MMOL/L Carbon Dioxide Level 19 L 21-32 MMOL/L Anion Gap 11 5-14 MMOL/L Blood Urea Nitrogen 7 7-18 MG/DL Creatinine 0.69 0.60-1.30 MG/DL Estimat Glomerular Filtration Rate > 60 BUN/Creatinine Ratio 10 Glucose Level 87 70-105 MG/DL Calcium Level 9.7 8.5-10.1 MG/DL Corrected Calcium 9.7 8.5-10.1 MG/DL Total Bilirubin 0.3 0.1-1.0 MG/DL Aspartate Amino Transf (AST/SGOT) 20 5-34 U/L Alanine Aminotransferase (ALT/SGPT) 27 0-55 U/L Alkaline Phosphatase 132 40-136 U/L Total Protein 7.4 6.4-8.2 GM/DL Albumin 4.0 3.2-4.5 GM/DL Amylase Level 49 25-125 U/L Lipase 19 8-78 U/L Urine Color YELLOW Urine Clarity CLEAR Urine pH 5 5-9 Urine Specific [place] 1.010 L 1.016-1.022 Urine Protein NEGATIVE NEGATIVE Urine Glucose (UA) NEGATIVE NEGATIVE Urine Ketones NEGATIVE NEGATIVE Urine Nitrite NEGATIVE NEGATIVE Urine Bilirubin NEGATIVE NEGATIVE Urine Urobilinogen NORMAL NORMAL MG/DL Urine Leukocyte Esterase 1+ H NEGATIVE Urine RBC (Auto) NEGATIVE NEGATIVE Urine RBC NONE /HPF Urine WBC 0-2 /HPF Urine Squamous Epithelial Cells 2-5 /HPF Urine Crystals NONE /LPF Urine Bacteria TRACE /HPF Urine Casts NONE /LPF Urine Mucus NEGATIVE /LPF Urine Culture Indicated YES Urine Test NEGATIVE NEGATIVE Micro Results Microbiology 10/07/18 Urine Culture - Final, Complete NO GROWTH My Orders Orders - MARIA E ESQUIVEL Comprehensive Metabolic Panel (10/07/18 11:56) Lipase (10/07/18 11:56) Amylase (10/07/18 11:56) Ua Culture If Indicated (10/07/18 11:56) Ed Iv/Invasive Line Start (10/07/18 11:56) Cbc With Automated Diff (10/07/18 11:56) Ketorolac Injection (Toradol Injection) (10/07/18 12:00) Ns Iv 1000 Ml (Sodium Chloride 0.9%) (10/07/18 12:00) Manual Differential (10/07/18 12:02) Urine Culture (10/07/18 12:25) Ct Abdomen/Pelvis W (10/07/18 12:54) Hcg,Qualitative Urine (10/07/18 12:55) Iohexol Injection (Omnipaque 350 Mg/Ml 1 (10/07/18 13:00) Received Contrast (Hold Metformin- Contr (10/07/18 13:00) Fentanyl Injection (Sublimaze Injection (10/07/18 14:15) Iv Push Mainframe Systems Administrator Ed (10/07/18 ) Medications Given in ED Vital Signs/I&O 10/07/18 10/07/18 11:52 14:56 Temp 96.7 Pulse 83 75 Resp 18 18 B/P (MAP) 118/87 (97) 116/68 (84) Pulse Ox 97 98 O2 Delivery Room Air Room Air Blood Pressure Mean: 97 Progress Progress Note : Time: 14:35 Progress Note I have seen and evaluated the patient. I have discussed the imaging studies with Dr. Benral at this time and he said he would be willing to admit the patient for diverticulitis. The patient does not wish to be admitted to the hospital at this time and like to try outpatient treatment. Dr. Bernal was notified and recommends using Cipro Flagyl and nothing by mouth for the next 5 days and following up with his office within a week. The patient agrees with plan of care, plans for discharge, return precautions were given. Departure Impression Primary Impression: Diverticulitis of intestine Disposition: HOME, SELF-CARE Condition: Stable/Unchanged Departure-Patient Inst. Decision time for Depature: 14:35 Referrals: LEONILA BERNAL HOLLY R MD (PCP/Family) Primary Care Physician Patient Instructions: Diverticulitis (DC) Add. Discharge Instructions: Clear liquid diet for 5 days. Take medication as directed. Call Dr. Bernal's office to schedule follow-up appointment. Return back to the emergency room for worsening symptoms or concerns as needed. All discharge instructions reviewed with patient and/or family. Voiced understanding. Scripts Hydrocodone Bit/Acetaminophen (Hydrocodone/Acetaminophen 5/325mg Tablet) 1 Tab Tab 1 EACH PO Q4-6HR PRN for PAIN-MODERATE MDD 10 for 3 Days, #14 TAB Prov: MARIA E ESQUIVEL 10/07/18 Metronidazole (Metronidazole) 500 Mg Tablet 500 MG PO TID for 10 Days, #30 TAB 0 Refills Prov: MARIA E EQSUIVEL 10/07/18 Ciprofloxacin HCl (Ciprofloxacin HCl) 500 Mg Tablet 500 MG PO BID for 10 Days, #20 TAB Prov: MARIA E ESQUIVEL 10/07/18 MARIA E ESQUIVEL October 07, 2018 13:54
[2018-10-07] MEDS ORDERED: fentaNYL INJECTION 100 MCG/2 ML AMP IVP ONE (14:15)
--- NOTE | 2018-10-07 14:15 | Diagnostic Imaging Report ---
PROCEDURE: CT abdomen and pelvis with contrast. TECHNIQUE: Multiple contiguous axial images were obtained through the abdomen and pelvis after administration of intravenous contrast. Auto Exposure Controls were utilized during the CT exam to meet ALARA standards for radiation dose reduction. INDICATION: Right lower quadrant abdominal pain. COMPARISON: 12/04/2015 FINDINGS: Included portions of the lung bases show mild dependent posterior atelectasis. CT abdomen: There is prominent diverticulum arising from the anterior inferior margins of the cecum (image 63, series 2). Additionally, there is abnormal stranding of the surrounding pericecal fat. Findings are suggestive of acute cecal diverticulitis. There is no pneumatosis, pneumoperitoneum, or portal venous gas. A separate normal-appearing appendix is identified. Small bowel loops are nondistended. There is no free fluid or loculated fluid collection within the abdomen. The kidneys, adrenal glands, spleen, pancreas, and liver have a normal CT appearance. No abnormal mesenteric or retroperitoneal adenopathy is seen. Bony structures show no acute abnormalities. CT pelvis: Urinary bladder is unopacified. No calculi are seen within the urinary bladder. There is no loculated fluid collection, free fluid, or free air within the pelvis. Left ovarian cyst measures 3.5 x 2.7 cm. No abnormal adenopathy is identified within the pelvis. Bony structures show no acute abnormalities. IMPRESSION: 1. Diverticulosis with probable acute cecal diverticulitis. Please note, colonic malignancy may present in a similar manner. 2. Normal appendix. 3. Left ovarian cyst. Dictated by: Dictated on workstation # [id number]
[2018-10-07] MEDS ORDERED: ACHD5005 PO (14:40)
[2018-10-07] MEDS ORDERED: METR-145 PO (14:40)
[2018-10-07] MEDS ORDERED: CIPR500T4 PO (14:40)
[2018-10-07 14:56] VITALS: BP 116/68
== END 2018-10-07 14:58 | disposition home or self-care (01) ==
LOC: EDUNIT# 10:58 → ER 10:59
DX: K57.32 Diverticulitis of large intestine without perforation or abscess without bleeding (principal); J45.909 Unspecified asthma, uncomplicated; F32.9 Major depressive disorder, single episode, unspecified; E78.00 Pure hypercholesterolemia, unspecified; Z87.440 Personal history of urinary (tract) infections; Z90.89 Acquired absence of other organs; Z82.49 Family history of ischemic heart disease and other diseases of the circulatory system
CPT/HCPCS: 36415; 74177; 80053; 81000; 82150; 83690; 84703; 85007; 85027; 87088; 96361; 96374; 96375

== ENCOUNTER 2019-01-12 12:00 | Outpatient (CLI) | payer MEDICAID ==
[~2019-01-12] VITALS: Ht 162.6 cm; Wt 113.4 kg
[~2019-01-12 12:00] MED LIST changes: +ACHD5005 PO; +CIPR500T4 PO; +ESCI20TA45 PO; +METR-145 PO; +TERB250T16 PO
== END 2019-01-12 12:32 | disposition home or self-care (01) ==
LOC: PREOP 12:00
PROVIDERS: ATTEND Surgery
DX: Z01.818 Encounter for other preprocedural examination (principal)

== ENCOUNTER 2019-01-15 09:06 | Day surgery (SDC) | payer MEDICAID ==
[~2019-01-15] VITALS: Ht 162.6 cm; Wt 113.4 kg
[~2019-01-15 09:06] MED LIST changes: +LACTATED RINGERS 1,000 ML IV ONE
[2019-01-15] MEDS ORDERED: LACTATED RINGERS 1,000 ML IV STA (09:42)
[2019-01-15 10:14] VITALS: BP 107/77
[2019-01-15] MEDS ORDERED: MIDAZOLAM 2 MG/2 ML (VERSED) VIAL ONE (12:28)
[2019-01-15] MEDS ORDERED: PROPOFOL INJECTION 50 ML IV ONE (12:28)
--- NOTE | 2019-01-15 12:28 | Progress Note-Pre Operative ---
Pre-Operative Progress Note H&P Reviewed The H&P was reviewed, patient examined and no changes noted. Date Seen by Provider: Jan 15, 2019 Time Seen by Provider: 12:28 Date H&P Reviewed: Jan 15, 2019 Time H&P Reviewed: 12:28 Pre-Operative Diagnosis: hx cecal diverticulitis LEONILA LACEY DO Jan 15, 2019 12:28
[2019-01-15] MEDS ORDERED: proPOfol 200 MG/20 ML (DIPRIVAN) VIAL IV ONE (13:13)
[2019-01-15 13:30] VITALS: BP 119/68
--- NOTE | 2019-01-15 13:30 | Progress Note-Post Operative ---
Post-Operative Progess Note Surgeon (s)/Bus Driver (s) Surgeon LEONILA LACEY DO Bus Driver: na Pre-Operative Diagnosis hx cecal diverticulitis Post-Operative Diagnosis colon polyps Procedure & Operative Findings Date of Procedure 01/15/19 Procedure Performed/Findings colonoscopy c snare polypectomy x 2 Anesthesia Type per instrumentation controls engineer Estimated Blood Loss Estimated blood loss (mL): none Specimens/Packing Specimens Removed sigmoid polyp x 2 LEONILA LACEY DO Jan 15, 2019 13:30
--- NOTE | 2019-01-15 13:31 | Discharge Inst-Simple/Standard ---
Discharge Inst-Standard Patient Instructions/Follow Up Plan of Care/Instructions/FU: 2-3 weeks Gabe Activity as Tolerated: Yes Discharge Diet: Regular Diet LEONILA LACEY DO Jan 15, 2019 13:31
[2019-01-15 13:35] VITALS: BP 115/66
[2019-01-15 14:05] VITALS: BP 117/83
[2019-01-15 14:10] VITALS: BP 117/83
--- NOTE | 2019-01-15 16:42 | OPERATIVE REPORT ---
DATE OF SERVICE: 01/15/2019 PREOPERATIVE DIAGNOSIS: History of cecal diverticulitis. POSTOPERATIVE DIAGNOSIS: Colon polyps. PROCEDURE: Colonoscopy with snare polypectomy x2. SURGEON: Leonila Bernal DO ANESTHESIA: Per INSIDE [employer]AR SALES CONSULTANT. ESTIMATED BLOOD LOSS: None. COMPLICATIONS: None. INDICATIONS: The patient is a 28-year-old female with right lower quadrant abdominal pain. She had a CT scan that is suggestive of cecal diverticulitis. She understands risks and benefits of procedure and wished to proceed with procedure. Consent was signed in the chart. DESCRIPTION OF PROCEDURE: The patient was taken to the endoscopy suite, placed in left lateral recumbent position. Timeout was performed. There were no palpable polyps, masses or ulcerations on rectal exam. Scope was inserted in the rectum, advanced all the way to the cecum with minimal difficulty. Prep was adequate. There were no polyps, masses or ulcerations visualized within the cecum. The terminal ileum was intubated, having a normal appearance. Scope was then slowly retracted back into the colon and continued to be slowly retracted back. There were no other polyps, masses or ulcerations in the ascending, transverse and descending colon. In the sigmoid colon, there were two polyps present, one small and one larger. Snare polypectomies were performed and obtained for specimen. Scope was continued to be slowly retracted back through the remainder of the sigmoid and rectum where it was also retroflexed noting no other pathology. Scope was returned to its normal position, slowly withdrawn until completely removed. The patient tolerated the procedure well without any complications. She was taken to recovery room in stable condition. RECOMMENDATIONS: The patient will need a repeat colonoscopy in one year to reevaluate due to a larger polyp. If she has any problems prior to that, she should be reevaluated at that time. Job ID: [id number] DocumentID: [id number] Dictated Date: 01/15/2019 13:33:59 Sr. Payroll Processor Date: 01/15/2019 16:41:50 Dictated By: LEONILA BERNAL DO
== END 2019-01-15 14:10 | disposition home or self-care (01) ==
LOC: ENDO 09:06
PROVIDERS: ATTEND Surgery
DX: D12.5 Benign neoplasm of sigmoid colon (principal); E78.5 Hyperlipidemia, unspecified; J45.909 Unspecified asthma, uncomplicated; E66.01 Morbid (severe) obesity due to excess calories; F32.9 Major depressive disorder, single episode, unspecified; F17.210 Nicotine dependence, cigarettes, uncomplicated; Z68.41 Body mass index [BMI] 40.0-44.9, adult; Z87.19 Personal history of other diseases of the digestive system; Z79.899 Other long term (current) drug therapy; Z82.49 Family history of ischemic heart disease and other diseases of the circulatory system
CPT/HCPCS: 84703

== ENCOUNTER 2019-08-12 04:18 | Emergency (ER) | payer SELFPAY ==
[~2019-08-12] VITALS: Ht 162.5 cm; Wt 113.3 kg
[~2019-08-12 04:18] MED LIST changes: -IBUP-2055 PO; +IBUP-2473 PO; -LACTATED RINGERS 1,000 ML IV ONE; -TAMS0.4C98 PO; +TMSL.4C PO; -TRAM50TA2 PO; +TRM50T PO
[2019-08-12] MEDS ORDERED: LIDOCAINE 2% VISCOUS 15 ML UDC ONE (04:30)
[2019-08-12] MEDS ORDERED: ANTACID SUSP 30 ML UDC (MYLANTA) ONE (04:30)
[2019-08-12] MEDS ORDERED: ONDANSETRON 4 MG (ZOFRAN) ORAL DISSOLVE TAB ONE (04:30)
[2019-08-12 04:44] LABS: BILIRUBIN,URINE NEGATIVE (NEGATIVE); CLARITY,URINE CLEAR; COLOR,URINE YELLOW; GLUCOSE, URINE (UA) NEGATIVE (NEGATIVE); KETONES,URINE NEGATIVE (NEGATIVE); LEUKOCYTE ESTERASE ,URINE NEGATIVE (NEGATIVE); NITRITE,URINE NEGATIVE (NEGATIVE); PROTEIN,URINE NEGATIVE (NEGATIVE)
[2019-08-12] MEDS ORDERED: LIDOCAINE 2% VISCOUS 15 ML UDC PO ONE (04:45)
[2019-08-12] MEDS ORDERED: ANTACID SUSP 30 ML UDC (MYLANTA) PO ONE (04:45)
[2019-08-12] MEDS ORDERED: ONDANSETRON 4 MG (ZOFRAN) ORAL DISSOLVE TAB SL ONE (04:45)
[2019-08-12 04:53] LABS: BACTERIA,URINE NEGATIVE /HPF; SQUAMOUS EPITHELIAL CELL,UR 0-2 /HPF
[2019-08-12] MEDS ORDERED: fentaNYL INJECTION 100 MCG/2 ML AMP IVP ONE (05:15)
[2019-08-12 05:24] LABS: BASOPHILS % (AUTO) 1 % (0-10); EOSINOPHILS # (AUTO) 0.1 10^3/uL (0.0-0.3); EOSINOPHILS % (AUTO) 1 % (0-10); HEMATOCRIT 43 % (35-52); HEMOGLOBIN 14.9 G/DL (11.5-16.0); LYMPHOCYTES % (AUTO) 28 % (12-44); MEAN CORPUSCULAR HEMOGLOBIN 31 PG (25-34); MEAN CORPUSCULAR HGB CONC 34 G/DL (32-36); MEAN CORPUSCULAR VOLUME 90 FL (80-99); MONOCYTES # (AUTO) 1.1 X 10^3 (0.0-1.0); MONOCYTES % (AUTO) 14 % (0-12); NEUTROPHILS # (AUTO) 4.2 X 10^3 (1.8-7.8); NEUTROPHILS % (AUTO) 57 % (42-75); PLATELET COUNT 270 10^3/uL (130-400); RED CELL DISTRIBUTION WIDTH 14.7 % (10.0-14.5); WHITE BLOOD COUNT 7.3 10^3/uL (4.3-11.0)
--- NOTE | 2019-08-12 05:30 | ED Abdominal Pain ---
General Chief Complaint: Abdominal/GI Problems Stated Complaint: ABD PAIN Nursing Triage Note: C/O ABDOMINAL PAIN SINE ABOUT MIDNIGHT, PATIENT POINTS TO EPIGASTRIC AREA AND STATES IT GOES THROUGH TO HER BACK. SHE ALSO STATES SHE HAD A BOWEL MOVEMENT AROUND 2300 LAST NIGHT. VERBALIZES NAUSEA WITH NO VOMITING. PAIN RATING A 10-10 Sepsis Screen: No Definite Risk Source of Information: Patient, Old Records Exam Limitations: No Limitations History of Present Illness Date Seen by Provider: Aug 12, 2019 Time Seen by Provider: 04:26 Initial Comments This 29-year-old young lady presents to the emergency room with complaints of epigastric pain 2 days. It has become severe since midnight. She vomited 2. She denies any alcohol use. She denies as she has an Explanon implant. She recalls having abdominal pain once previously related to diverticulitis. She has no diarrhea and no fever. She had a colonoscopy last December with polypectomy [address] Lacey. Allergies and Home Medications Allergies Coded Allergies: KEITHANo Known Allergies (Unverified Allergy, Mild, 09/29/08) Home Medications Escitalopram Oxalate 20 Mg Tablet, 20 MG PO DAILY, (Reported) Ondansetron 4 Mg Tab.rapdis, 4 MG SL Q4H PRN for NAUSEA/VOMITING Prescribed by: PERLITA OJEDA on 08/12/19 0632 Terbinafine HCl 250 Mg Tablet, 250 MG PO Q48H, (Reported) Patient Home Medication List Home Medication List Reviewed: Yes Review of Systems Review of Systems Constitutional: no symptoms reported EENTM: No Symptoms Reported Respiratory: No Symptoms Reported Cardiovascular: No Symptoms Reported Gastrointestinal: See HPI Genitourinary: No Symptoms Reported Musculoskeletal: no symptoms reported Skin: no symptoms reported Psychiatric/Neurological: No Symptoms Reported Endocrine: No Symptoms Reported Hematologic/Lymphatic: No Symptoms Reported Past Irhsurs-Ldaaay-Ldmcmr Hx Past Med/Social Hx: Reviewed and Corrections made Patient Social History Alcohol Use: Denies Use Recreational Drug Use: No (DENIES) Drug of Choice: marijuana, "dope" Type Used: Cigarettes Recent Foreign Travel: No Contact w/Someone Who Travel: No Recent Infectious Disease Expo: No Recent Hopitalizations: No Physical Abuse: No Sexual Abuse: No Mistreated: No Fear: No Immunizations Up To Date Tetanus Booster (TDap): Less than 5yrs PED Vaccines UTD: No Date of Influenza Vaccine: Mar 07, 2017 Seasonal Allergies Seasonal Allergies: Yes Past Medical History Surgeries: Yes (tubes in ears, cataract) Abdominal (colonoscopy with polypectomy), Adenoidectomy, Tonsillectomy Respiratory: Yes Asthma Cardiac: Yes High Cholesterol Neurological: No : Yes (Explanon implant) Last Menstrual Period: Jun 28, 2019 Reproductive Disorders: No Female Reproductive Disorders: Denies Sexually Transmitted Disease: No HIV/AIDS: No Genitourinary: No UTI-Chronic Gastrointestinal: Yes Diverticulosis, Polyps Musculoskeletal: Yes Chronic Back Pain Endocrine: No HEENT: Yes (cataract removed) Chronic Ear Infection Hearing Impairment: Denies Cancer: No Psychosocial: Yes Depression Integumentary: No Blood Disorders: No Adverse Reaction/Blood Tranf: No (N/a) Family Medical History HEART STENTS 19 FATHER Hypertension 19 MOTHER Myocardial infarction 19 FATHER Heart Disease, Diabetes, Hypertension Physical Exam Vital Signs Vital Signs - First Documented 08/12/19 04:23 Temp 36.3 Pulse 85 Resp 20 B/P (MAP) 127/65 (85) Pulse Ox 98 Capillary Refill : Less Than 3 Seconds Height/Weight/BMI Height: 5'4.00" Weight: 250lbs. 0.0oz. 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, no motor/sensory deficits, alert, normal mood/affect, oriented x 3 Skin: normal color, warm/dry Progress/Results/Core Measures Results/Orders Lab Results Laboratory Tests Test 08/12/19 04:24 08/12/19 05:15 Range/Units Urine Color YELLOW Urine Clarity CLEAR Urine pH 6.0 5-9 Urine Specific Martin 1.010 L 1.016-1.022 Urine Protein NEGATIVE NEGATIVE Urine Glucose (UA) NEGATIVE NEGATIVE Urine Ketones NEGATIVE NEGATIVE Urine Nitrite NEGATIVE NEGATIVE Urine Bilirubin NEGATIVE NEGATIVE Urine Urobilinogen 0.2 < = 1.0 MG/DL Urine Leukocyte Esterase NEGATIVE NEGATIVE Urine RBC (Auto) NEGATIVE NEGATIVE Urine RBC NONE /HPF Urine WBC NONE /HPF Urine Squamous Epithelial Cells 0-2 /HPF Urine Crystals NONE /LPF Urine Bacteria NEGATIVE /HPF Urine Casts NONE /LPF Urine Mucus NEGATIVE /LPF Urine Culture Indicated NO White Blood Count 7.3 4.3-11.0 10^3/uL Red Blood Count 4.84 4.35-5.85 10^6/uL Hemoglobin 14.9 11.5-16.0 G/DL Hematocrit 43 35-52 % Mean Corpuscular Volume 90 80-99 FL Mean Corpuscular Hemoglobin 31 25-34 PG Mean Corpuscular Hemoglobin Concent 34 32-36 G/DL Red Cell Distribution Width 14.7 H 10.0-14.5 % Platelet Count 270 130-400 10^3/uL Mean Platelet Volume 11.0 H 7.4-10.4 FL Neutrophils (%) (Auto) 57 42-75 % Lymphocytes (%) (Auto) 28 12-44 % Monocytes (%) (Auto) 14 H 0-12 % Eosinophils (%) (Auto) 1 0-10 % Basophils (%) (Auto) 1 0-10 % Neutrophils # (Auto) 4.2 1.8-7.8 X 10^3 Lymphocytes # (Auto) 2.0 1.0-4.0 X 10^3 Monocytes # (Auto) 1.1 H 0.0-1.0 X 10^3 Eosinophils # (Auto) 0.1 0.0-0.3 10^3/uL Basophils # (Auto) 0.0 0.0-0.1 10^3/uL Sodium Level 142 135-145 MMOL/L Potassium Level 3.6 3.6-5.0 MMOL/L Chloride Level 109 H 98-107 MMOL/L Carbon Dioxide Level 22 21-32 MMOL/L Anion Gap 11 5-14 MMOL/L Blood Urea Nitrogen 7 7-18 MG/DL Creatinine 0.78 0.60-1.30 MG/DL Estimat Glomerular Filtration Rate > 60 BUN/Creatinine Ratio 9 Glucose Level 106 H 70-105 MG/DL Calcium Level 8.9 8.5-10.1 MG/DL Corrected Calcium 8.9 8.5-10.1 MG/DL Total Bilirubin 0.2 0.1-1.0 MG/DL Aspartate Amino Transf (AST/SGOT) 19 5-34 U/L Alanine Aminotransferase (ALT/SGPT) 29 0-55 U/L Alkaline Phosphatase 119 40-136 U/L C-Reactive Protein High Sensitivity 1.30 H 0.00-0.50 MG/DL Total Protein 7.1 6.4-8.2 GM/DL Albumin 4.0 3.2-4.5 GM/DL Lipase 56 8-78 U/L My Orders Orders - PERLITA CALABRESE MD Ua Culture If Indicated (08/12/19 04:26) Ondansetron Oral Dissolve Tab (Zofran (08/12/19 04:45) Lidocaine 2% Viscous 15 Ml (Xylocaine Vi (08/12/19 04:45) Antacid Suspension (Mylanta Suspension (08/12/19 04:45) Antacid Suspension (Mylanta Suspension (08/12/19 04:30) Lidocaine 2% Viscous 15 Ml (Xylocaine Vi (08/12/19 04:30) Ondansetron Oral Dissolve Tab (Zofran (08/12/19 04:30) Cbc With Automated Diff (08/12/19 05:01) Comprehensive Metabolic Panel (08/12/19 05:01) Hs C Reactive Protein (08/12/19 05:01) Lipase (08/12/19 05:01) Ed Iv/Invasive Line Start (08/12/19 05:01) Urine Bedside (08/12/19 05:01) Fentanyl Injection (Sublimaze Injection (08/12/19 05:15) Famotidine Injection (Pepcid Injection) (08/12/19 06:30) Medications Given in ED Current Medications Medications Dose Ordered Sig/Carlos Route Start Time Stop Time Status Last Admin Dose Admin Al Hydrox/Mg Hydrox/Simethicone 30 ml ONCE ONCE PO 08/12/19 04:45 08/12/19 04:46 DC 08/12/19 04:36 30 ML Famotidine 20 mg ONCE ONCE IVP 08/12/19 06:30 08/12/19 06:31 DC 08/12/19 06:28 20 MG Fentanyl Citrate 50 mcg ONCE ONCE IVP 08/12/19 05:15 08/12/19 05:16 DC 08/12/19 05:14 50 MCG Lidocaine HCl 15 ml ONCE ONCE PO 08/12/19 04:45 08/12/19 04:46 DC 08/12/19 04:36 15 ML Ondansetron HCl 8 mg ONCE ONCE SL 08/12/19 04:45 08/12/19 04:46 DC 08/12/19 04:36 8 MG Vital Signs/I&O 08/12/19 08/12/19 04:23 06:37 Temp 36.3 36.4 Pulse 85 70 Resp 20 20 B/P (MAP) 127/65 (85) 100/71 (85) Pulse Ox 98 98 Blood Pressure Mean: 85 Progress Progress Note #1: Time: 05:35 Progress Note GI cocktail did not improve her pain. We will therefore proceed with further workup. Progress Note #2: Progress Note Patient's pain resolved with fentanyl. On reexamination she had no more tenderness. Workup was unremarkable. See discharge instructions. Departure Impression Primary Impression: Epigastric pain Additional Impression: Nausea and vomiting Qualified Codes: R11.2 - Nausea with vomiting, unspecified Disposition: 01 HOME, SELF-CARE Condition: Improved Departure-Patient Inst. Decision time for Depature: 06:15 Referrals: GIGI GARCIA MD (PCP/Family) Primary Care Physician Patient Instructions: Acute Abdomen (Belly Pain), Adult (DC) Add. Discharge Instructions: Start with a clear liquid diet and gradually advance your diet with small quantities of bland food as tolerated. Take and antacid such as Pepcid 20 mg or Omeprazole 20 mg twice daily for 2 wee ks. If your nausea is not controlled, you may use Zofran as prescribed. Avoid the follow: Eating large meals, eating close to bedtime, caffeine, carbonation, chocolate, citrus fruits and juices, tomato products, alcohol, tobacco products, mints, spicy foods, fatty or greasy foods, NSAID medications such as ibuprofen or naproxen, or anything else you know irritates your stomach. Expect your pain to rebound of some before it gets better. It should gradually improve each day. Return to care if symptoms worsen. Follow up with your primary care provider within the next couple weeks. If pain does not resolve, you may need further evaluation with endoscopy. All discharge instructions reviewed with patient and/or family. Voiced understanding. Scripts Ondansetron (Ondansetron Odt) 4 Mg Tab.rapdis 4 MG SL Q4H PRN for NAUSEA/VOMITING, #10 TAB Prov: BRUEGGEMANN,PERLITA T MD 08/12/19 Copy Copies To 1: LEONILA LACEY DO Copies To 2: GIGI GARCIA MD, JOSHUA T MD Aug 12, 2019 05:30
[2019-08-12 05:54] LABS: ALANINE AMINOTRANSFERASE 29 U/L (0-55); ALKALINE PHOSPHATASE 119 U/L (40-136); BILIRUBIN,TOTAL 0.2 MG/DL (0.1-1.0); BUN/CREATININE RATIO 9; CALCIUM 8.9 MG/DL (8.5-10.1); CARBON DIOXIDE 22 MMOL/L (21-32); CHLORIDE 109 MMOL/L (98-107); CREATININE SERUM 0.78 MG/DL (0.60-1.30); GFR ESTIMATED > 60; GLUCOSE 106 MG/DL (70-105); LIPASE 56 U/L (8-78); POTASSIUM 3.6 MMOL/L (3.6-5.0); SODIUM 142 MMOL/L (135-145); TOTAL PROTEIN 7.1 GM/DL (6.4-8.2)
[2019-08-12] MEDS ORDERED: FAMOTIDINE 20MG/2ML IV (PEPCID) IVP ONE (06:30)
[2019-08-12] MEDS ORDERED: ONDA4TAB11 SL (06:32)
[2019-08-12 06:37] VITALS: BP 100/71
== END 2019-08-12 06:38 | disposition home or self-care (01) ==
LOC: EDUNIT# 04:18 → ER 04:21
DX: R10.13 Epigastric pain (principal); R11.2 Nausea with vomiting, unspecified; F32.9 Major depressive disorder, single episode, unspecified; Z82.49 Family history of ischemic heart disease and other diseases of the circulatory system; Z86.010 Personal history of colon polyps
CPT/HCPCS: 36415; 80053; 81000; 83690; 84703; 85025; 86141

== ENCOUNTER 2020-05-21 15:59 | Emergency (ER) | payer SELFPAY ==
[~2020-05-21] VITALS: Ht 160 cm; Wt 120.0 kg
[~2020-05-21 15:59] MED LIST changes: +ONDA4TAB11 SL
[2020-05-21] MEDS ORDERED: RT-ALBUTEROL INHALER HFA (VENTOLIN HFA) 18 GM IH ONE (16:20)
[2020-05-21 16:39] LABS: BASOPHILS % (AUTO) 0 % (0-10); EOSINOPHILS # (AUTO) 0.2 10^3/uL (0.0-0.3); EOSINOPHILS % (AUTO) 1 % (0-10); HEMATOCRIT 42 % (35-52); HEMOGLOBIN 14.3 g/dL (11.5-16.0); LYMPHOCYTES # (AUTO) 3.3 X 10^3 (1.0-4.0); LYMPHOCYTES % (AUTO) 24 % (12-44); MEAN CORPUSCULAR HEMOGLOBIN 31 pg (25-34); MEAN CORPUSCULAR HGB CONC 34 g/dL (32-36); MEAN CORPUSCULAR VOLUME 92 fL (80-99); MEAN PLATELET VOLUME 10.3 fL (9.0-12.2); MONOCYTES # (AUTO) 0.9 X 10^3 (0.0-1.0); MONOCYTES % (AUTO) 6 % (0-12); NEUTROPHILS # (AUTO) 9.3 X 10^3 (1.8-7.8); NEUTROPHILS % (AUTO) 68 % (42-75); PLATELET COUNT 299 10^3/uL (130-400); WHITE BLOOD COUNT 13.6 10^3/uL (4.3-11.0)
--- NOTE | 2020-05-21 16:52 | ED Respiratory ---
General Chief Complaint: Respiratory Problems Stated Complaint: SOA/COUGH Nursing Triage Note: PT TO ED W/ C/O COUGH, CONGESTION ONSET X5 DAYS, WORSE TODAY. 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 NO OTHER C/O VOICED. Source: patient Exam Limitations: no limitations History of Present Illness Date Seen by Provider: May 21, 2020 Time Seen by Provider: 16:22 Initial Comments Here with cough and shortness of breath that has been going on for about 5 days but worse today. 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 Denies fever. States that she gets pneumonia easily and has history of bronchitis. Does not have an inhaler at home but has used them before. Denies diarrhea or dysuria. Does have runny nose. Arrives wheezing but normal O2 saturation. Timing/Duration: week, getting worse Severity: moderate Prior Episodes/Possible Cause: occasional episodes Modifying Factors: Improves With Rest Associated Symptoms: cough; No fever/chills; nasal congestion, nasal drainage, shortness of breath; No sore throat; wheezing Allergies and Home Medications Allergies Coded Allergies: NKANo Known Allergies (Unverified Allergy, Mild, 09/29/08) Home Medications Doxycycline Hyclate 100 Mg Tablet, 100 MG PO BID Prescribed by: THOMAS HAWLEY on 05/21/201747 Escitalopram Oxalate 20 Mg Tablet, 20 MG PO DAILY, (Reported) Ondansetron 4 Mg Tab.rapdis, 4 MG SL Q4H PRN for NAUSEA/VOMITING Prescribed by: PERLITA OJEDA on 08/12/19 0632 Prednisone 20 Mg Tab, 40 MG PO DAILY Prescribed by: THOMAS HAWLEY on 05/21/201747 Terbinafine HCl 250 Mg Tablet, 250 MG PO Q48H, (Reported) Patient Home Medication List Home Medication List Reviewed: Yes Review of Systems Review of Systems Constitutional: see HPI; No chills, No fever; other (Fatigue) EENTM: see HPI Respiratory: see HPI Cardiovascular: No chest pain, No edema Gastrointestinal: No abdominal pain, No nausea, No vomiting All Other Systems Reviewed Negative Unless Noted: Yes Past Wguvemz-Rtlhhr-Kbwbzw Hx Past Med/Social Hx: Reviewed Nursing Past Med/Soc Hx Patient Social History Alcohol Use: Denies Use Recreational Drug Use: No Drug of Choice: marijuana, "dope" Smoking Status: Current Everyday Smoker Type Used: Cigarettes Recent Foreign Travel: No Contact w/Someone Who Travel: No Recent Infectious Disease Expo: No Recent Hopitalizations: No Physical Abuse: No Sexual Abuse: No Mistreated: No Fear: No Immunizations Up To Date Tetanus Booster (TDap): Less than 5yrs PED Vaccines UTD: No Date of Influenza Vaccine: Mar 07, 2017 Seasonal Allergies Seasonal Allergies: Yes Past Medical History Surgeries: Yes (tubes in ears, cataract) Abdominal, Adenoidectomy, Tonsillectomy Respiratory: Yes Asthma Cardiac: Yes High Cholesterol Neurological: No Reproductive Disorders: No Female Reproductive Disorders: Denies Sexually Transmitted Disease: No HIV/AIDS: No Genitourinary: No UTI-Chronic Gastrointestinal: Yes Diverticulosis, Polyps Musculoskeletal: Yes Chronic Back Pain Endocrine: No HEENT: Yes (cataract removed) Chronic Ear Infection Hearing Impairment: Denies Cancer: No Psychosocial: Yes Depression Integumentary: No Blood Disorders: No Adverse Reaction/Blood Tranf: No (N/a) Family Medical History Reviewed Nursing Family Hx HEART STENTS 19 FATHER Hypertension 19 MOTHER Myocardial infarction 19 FATHER Heart Disease, Diabetes, Hypertension Physical Exam Vital Signs - First Documented 05/21/20 16:15 Temp 36.7 Pulse 88 Resp 20 B/P (MAP) 136/95 (109) Pulse Ox 95 O2 Delivery Room Air Capillary Refill : Less Than 3 Seconds Height: 5'4.00" Weight: 250lbs. 0.0oz. 113.762587zv; 46.00 BMI Method:Stated General Appearance: WD/WN, no apparent distress HEENT: PERRL/EOMI, pharyngeal erythema Neck: full range of motion, supple Respiratory: no accessory muscle use, wheezing Cardiovascular: regular rate, rhythm, no murmur Gastrointestinal: non tender, soft Extremities: non-tender, normal inspection Neurologic/Psychiatric: alert, oriented x 3 Skin: normal color, warm/dry Progress/Results/Core Measures Suspected Sepsis Recent Fever Within 48 Hours: No Infection Criteria Present: None New/Unexplained Altered Menta: No Sepsis Screen: No Definite Risk SIRS Temperature: Pulse: 88 Respiratory Rate: 20 Laboratory Tests 05/21/20 16:26: White Blood Count 13.6H Blood Pressure 136 /95 Mean: 109 Laboratory Tests 05/21/20 16:26: Creatinine 0.71, Platelet Count 299, Total Bilirubin 0.2 Results/Orders Lab Results Laboratory Tests Test 05/21/20 16:19 05/21/20 16:26 Range/Units Coronavirus 2019 (ESPINOZA) Negative Negative White Blood Count 13.6 H 4.3-11.0 10^3/uL Red Blood Count 4.60 3.80-5.11 10^6/uL Hemoglobin 14.3 11.5-16.0 g/dL Hematocrit 42 35-52 % Mean Corpuscular Volume 92 80-99 fL Mean Corpuscular Hemoglobin 31 25-34 pg Mean Corpuscular Hemoglobin Concent 34 32-36 g/dL Red Cell Distribution Width 14.7 H 10.0-14.5 % Platelet Count 299 130-400 10^3/uL Mean Platelet Volume 10.3 9.0-12.2 fL Immature Granulocyte % (Auto) 0 % Neutrophils (%) (Auto) 68 42-75 % Lymphocytes (%) (Auto) 24 12-44 % Monocytes (%) (Auto) 6 0-12 % Eosinophils (%) (Auto) 1 0-10 % Basophils (%) (Auto) 0 0-10 % Neutrophils # (Auto) 9.3 H 1.8-7.8 X 10^3 Lymphocytes # (Auto) 3.3 1.0-4.0 X 10^3 Monocytes # (Auto) 0.9 0.0-1.0 X 10^3 Eosinophils # (Auto) 0.2 0.0-0.3 10^3/uL Basophils # (Auto) 0.0 0.0-0.1 10^3/uL Immature Granulocyte # (Auto) 0.0 0.0-0.1 10^3/uL Sodium Level 141 135-145 MMOL/L Potassium Level 3.6 3.6-5.0 MMOL/L Chloride Level 110 H 98-107 MMOL/L Carbon Dioxide Level 20 L 21-32 MMOL/L Anion Gap 11 5-14 MMOL/L Blood Urea Nitrogen 8 7-18 MG/DL Creatinine 0.71 0.60-1.30 MG/DL Estimat Glomerular Filtration Rate > 60 BUN/Creatinine Ratio 11 Glucose Level 98 70-105 MG/DL Calcium Level 8.5 8.5-10.1 MG/DL Corrected Calcium 8.7 8.5-10.1 MG/DL Total Bilirubin 0.2 0.1-1.0 MG/DL Aspartate Amino Transf (AST/SGOT) 19 5-34 U/L Alanine Aminotransferase (ALT/SGPT) 23 0-55 U/L Alkaline Phosphatase 110 40-136 U/L C-Reactive Protein High Sensitivity 1.69 H 0.00-0.50 MG/DL Total Protein 7.3 6.4-8.2 GM/DL Albumin 3.8 3.2-4.5 GM/DL Micro Results Microbiology 05/21/20 Influenza Types A,B Antigen (EMILY) - Final, Complete My Orders Orders - THOMAS HAWLEY MD Albuterol Inhaler (Ventolin Hfa) (05/21/20 16:20) Cbc With Automated Diff (05/21/20 16:30) Comprehensive Metabolic Panel (05/21/20 16:30) Hs C Reactive Protein (05/21/20 16:30) Chest 1 View, Ap/Pa Only (05/21/20 16:30) Covid 19 Inhouse Test (05/21/20 16:30) Urine Bedside (05/21/20 16:32) Coronavirus Sars-Cov-2 So 2018 (05/21/20 16:19) Vital Signs/I&O 05/21/20 16:15 Temp 36.7 Pulse 88 Resp 20 B/P (MAP) 136/95 (109) Pulse Ox 95 O2 Delivery Room Air Capillary Refill : Less Than 3 Seconds Blood Pressure Mean: 109 Progress Note : Progress Note Seen and evaluated. IV, labs, UCG, chest x-ray and albuterol MDI 4 puffs ordered. Monitor patient. 1733: Patient overall doing much better after albuterol treatments. Question of possible infiltrates. We will go ahead and treat with doxycycline and steroid. Patient was appreciative of that especially given her history. Discharged home with return precautions. Patient verbalized understanding of instructions and agreement with plan. She will remain PUI until the results from [facility] are noted for her. This was discussed with the patient and she agrees. Diagnostic Imaging Diagonstic Imaging: Xray Plain Films/CT/US/NM/MRI: chest Comments [facility]. [place], [place] NAME: JOE FAULKNER [facility] REC#: [id number] PT STATUS: REG ER : 1990 PHYSICIAN: THOMAS HAWLEY MD ADMIT DATE: 05/21/20/ER Signed Date of Exam:05/21/20 CHEST 1 VIEW, AP/PA ONLY EXAMINATION: Chest radiograph, portable AP view. DATE: 05/21/2020 4:58 PM INDICATION: 29-year-old female, cough. COMPARISON: March 07, 2018. FINDINGS: Heart size and mediastinal contours are unchanged. There is no identified pneumothorax. There is no large pleural effusion. There do appear to be subtle multifocal bilateral lung opacities. There are technical limitations of the study. IMPRESSION: 1. Technical limitations of the study. 2. There is question of multifocal bilateral interstitial and/or alveolar opacities which could be seen with atypical infection or pulmonary edema. Dictated by: Dictated on workstation # [id number] Dict: 05/21/201699 Trans: 05/21/201707 PJE [id number] Interpreted by: ROBIN MCCRAY MD Electronically signed by: ROBIN MCCRAY MD 05/21/201707 Departure Impression Primary Impression: Acute bronchitis, bacterial Additional Impression: Person under investigation for COVID-19 Disposition: 01 HOME, SELF-CARE Condition: Improved Departure-Patient Inst. Decision time for Depature: 17:34 Referrals: GIGI GARCIA MD (PCP/Family) Primary Care Physician Patient Instructions: Coronavirus Disease 2019 (COVID-19) Overview, Acute Bronchitis, Adult (DC) Add. Discharge Instructions: All discharge instructions reviewed with patient and/or family. Voiced understanding. Take medications as directed. Drink plenty of fluids and get plenty of rest. You will need to remain isolated until test results are noted from [facility]. If they are negative, you will need remain isolated for 24 hours after symptoms resolve. If they are positive, the health department will call you and direct quarantine/isolation timeframe. You may take ibuprofen 600 mg every 8 hours as needed for fever or pain. You may take Tylenol/acetaminophen 1000 mg every 8 hours as needed for fever or pain. Return for worse pain, fever, vomiting, weakness, breathing problems or other concerns as needed. Use albuterol inhaler 2 puffs every 2-4 hours as needed for wheezing or shortness of breath. Scripts Prednisone (Prednisone) 20 Mg Tab 40 MG PO DAILY, #8 TAB 0 Refills Prov: THOMAS HAWLEY MD 05/21/20 Doxycycline Hyclate (Doxycycline Hyclate) 100 Mg Tablet 100 MG PO BID, #20 TAB 0 Refills Prov: THOMAS HAWLEY MD 05/21/20 THOMAS HAWLEY MD May 21, 2020 16:52
--- NOTE | 2020-05-21 17:03 | Diagnostic Imaging Report ---
EXAMINATION: Chest radiograph, portable AP view. DATE: 05/21/2020 4:58 PM INDICATION: 29-year-old female, cough. COMPARISON: March 07, 2018. FINDINGS: Heart size and mediastinal contours are unchanged. There is no identified pneumothorax. There is no large pleural effusion. There do appear to be subtle multifocal bilateral lung opacities. There are technical limitations of the study. IMPRESSION: 1. Technical limitations of the study. 2. There is question of multifocal bilateral interstitial and/or alveolar opacities which could be seen with atypical infection or pulmonary edema. Dictated by: Dictated on workstation # [id number]
[2020-05-21 17:13] LABS: ALANINE AMINOTRANSFERASE 23 U/L (0-55); ALBUMIN 3.8 GM/DL (3.2-4.5); ALKALINE PHOSPHATASE 110 U/L (40-136); BILIRUBIN,TOTAL 0.2 MG/DL (0.1-1.0); BUN/CREATININE RATIO 11; CALCIUM 8.5 MG/DL (8.5-10.1); CARBON DIOXIDE 20 MMOL/L (21-32); CHLORIDE 110 MMOL/L (98-107); CREATININE SERUM 0.71 MG/DL (0.60-1.30); GFR ESTIMATED > 60; GLUCOSE 98 MG/DL (70-105); POTASSIUM 3.6 MMOL/L (3.6-5.0); SODIUM 141 MMOL/L (135-145); TOTAL PROTEIN 7.3 GM/DL (6.4-8.2)
[2020-05-21] MEDS ORDERED: PRD20T PO (17:48)
[2020-05-21] MEDS ORDERED: DOXY100T2 PO (17:48)
[2020-05-21] MEDS ORDERED: DOXYCYCLINE 100 MG (VIBRAMYCIN) TABLET PO STA (17:48)
[2020-05-21 18:00] VITALS: BP 125/75
[2020-05-21] MEDS ORDERED: predniSONE 20 MG TAB PO ONE (18:00)
[2020-05-21] MEDS ORDERED: RT-ALBUTEROL INHALER HFA (VENTOLIN HFA) 18 GM IH SCH (18:00)
--- NOTE | 2020-05-21 18:00 | NUR ---
PT DISCHARGED TO HOME W/ MEDS, RX ET INSTR. PT TO TAKE MEDS DIRECTED, F/U W/ PCP ET RETURN IF SYMPTOMS CHANGE OR GET WORSE. UNDERSTANDING VOICED.
== END 2020-05-21 18:00 | disposition home or self-care (01) ==
LOC: EDUNIT# 15:59 → ER 16:00
DX: J20.9 Acute bronchitis, unspecified (principal); J45.909 Unspecified asthma, uncomplicated; F32.9 Major depressive disorder, single episode, unspecified; Z20.828 Contact with and (suspected) exposure to other viral communicable diseases; Z82.49 Family history of ischemic heart disease and other diseases of the circulatory system; Z83.3 Family history of diabetes mellitus; F17.210 Nicotine dependence, cigarettes, uncomplicated; Z79.52 Long term (current) use of systemic steroids
CPT/HCPCS: 71045; 80053; 84703; 85025; 86141; 87804; 99282; U0002; 36415; 87635

== ENCOUNTER 2021-01-05 21:42 | Emergency (ER) | payer SELFPAY ==
[~2021-01-05] VITALS: Ht 167 cm; Wt 120.0 kg
[~2021-01-05 21:42] MED LIST changes: -CIPR500T4 PO; +CIPR500T5 PO; +DOXY100T2 PO; +ESCI20TA39 PO; -ESCI20TA45 PO
--- NOTE | 2021-01-05 22:51 | ED Cough/URI ---
General Stated Complaint: HEADACHE/BODYACHES CHILLS COUGH Allergies and Home Medications Allergies Coded Allergies: NKANo Known Allergies (Unverified Allergy, Mild, 09/29/08) Home Medications Doxycycline Hyclate 100 Mg Tablet, 100 MG PO BID Prescribed by: THOMAS HAWLEY on 05/21/201747 Escitalopram Oxalate 20 Mg Tablet, 20 MG PO DAILY, (Reported) Ondansetron 4 Mg Tab.rapdis, 4 MG SL Q4H PRN for NAUSEA/VOMITING Prescribed by: PERLITA OJEDA on 08/12/19 0632 Prednisone 20 Mg Tab, 40 MG PO DAILY Prescribed by: THOMAS HAWLEY on 05/21/201747 Terbinafine HCl 250 Mg Tablet, 250 MG PO Q48H, (Reported) Past Adsofxt-Umolrz-Iygmrv Hx Immunizations Up To Date Tetanus Booster (TDap): Less than 5yrs PED Vaccines UTD: No Seasonal Allergies Seasonal Allergies: Yes Past Medical History Surgeries: Yes (tubes in ears, cataract) Abdominal, Adenoidectomy, Tonsillectomy Respiratory: Yes Asthma Cardiac: Yes High Cholesterol Neurological: No Reproductive Disorders: No Female Reproductive Disorders: Denies Sexually Transmitted Disease: No HIV/AIDS: No Genitourinary: No UTI-Chronic Gastrointestinal: Yes Diverticulosis, Polyps Musculoskeletal: Yes Chronic Back Pain Endocrine: No HEENT: Yes (cataract removed) Chronic Ear Infection Hearing Impairment: Denies Cancer: No Psychosocial: Yes Depression Integumentary: No Blood Disorders: No Adverse Reaction/Blood Tranf: No (N/a) Family Medical History HEART STENTS 19 FATHER Hypertension 19 MOTHER Myocardial infarction 19 FATHER Heart Disease, Diabetes, Hypertension Physical Exam Capillary Refill : Height: 5'4.00" Weight: 250lbs. 0.0oz. 113.242321yp; 46.00 BMI Method:Stated Progress/Results/Core Measures Suspected Sepsis SIRS Temperature: Pulse: Respiratory Rate: Blood Pressure / Mean: Results/Orders Lab Results Laboratory Tests Test 01/05/21 21:58 Range/Units Influenza Type A (RT-PCR) Not Detected Not Detecte Influenza Type B (RT-PCR) Not Detected Not Detecte SARS-CoV-2 RNA (RT-PCR) Detected H Not Detecte Vital Signs/I&O Capillary Refill : Departure Impression Primary Impression: COVID-19 virus infection Disposition: 01 HOME, SELF-CARE Condition: Stable Departure-Patient Inst. Decision time for Depature: 22:50 Referrals: GIGI GARCIA MD (PCP/Family) Primary Care Physician Patient Instructions: COVID-19 (DC), Preventing the Spread of an Infectious Disease, Recovery After COVID-19 Add. Discharge Instructions: HOME, REST LOTS OF CLEAR LIQUIDS TYLENOL 1 GRAM,/ MOTRIN 800 MG 4 TIMES A DAY FOR PAIN OR FEVER OVER THE COUNTER MUCINEX DM FOR COUGH AND CONGESTION FOLLOW UP WITH [facility] IN 5-7 DAYS IF NO BETTER QUARANTINE YOURSELF AND ALL HOUSEHOLD MEMBERS FOR A MINIMUM OF 2 WEEKS Work/School Note: Work Release Form Date Seen in the Emergency Department: Jan 05, 2021 Return to Work: Jan 20, 2021 JAYLIN MENDOZA DO Jan 05, 2021 22:51
[2021-01-05 23:17] VITALS: BP 128/69
== END 2021-01-05 23:23 | disposition home or self-care (01) ==
LOC: EDUNIT# 21:42 → ER 21:45
DX: U07.1 COVID-19 (principal); F32.9 Major depressive disorder, single episode, unspecified; Z79.52 Long term (current) use of systemic steroids; Z79.899 Other long term (current) drug therapy
CPT/HCPCS: 87636; 99281

== ENCOUNTER 2021-10-16 04:00 | Emergency (ER) | payer SELFPAY ==
[~2021-10-16 04:00] MED LIST changes: -TERB250T16 PO; +TERB250T88 PO
[2021-10-16] MEDS ORDERED: PENI500T PO (04:25)
[2021-10-16] MEDS ORDERED: ACHD5005 PO (04:25)
--- NOTE | 2021-10-16 04:26 | ED EENT ---
History of Present Illness General Chief Complaint: Dental Problems/Pain Stated Complaint: TOOTH PAIN X 4 DAYS Source: patient Exam Limitations: no limitations History of Present Illness Date Seen by Provider: October 16, 2021 Time Seen by Provider: 04:15 Initial Comments Patient is a 31-year-old female who presents to the emergency department today with a chief complaint of left lower molar dental pain. She has had developing pain over the course of the last 4 days. She has been taking Tylenol and ibuprofen without any relief of symptoms. She has hbvj-ncp-ilayxhk dental danny ling in place currently. She states she is unable to sleep. She is slightly nauseated due to the pain and has some left ear pain radiating from her tooth. Nothing makes the pain any better at all. Last dose of Tylenol and ibuprofen was at about 230 this morning. Patient states that she is 20 weeks . She is on antidepressants. She does smoke no fevers or chills. No URI symptoms. She gets her care through [facility]. She is waiting for an appointment at [facility]. All other review of systems reviewed and negative except as stated. Timing/Duration: gradual Severity: severe Location: dental Prearrival Treatment: over the counter meds Associated Symptoms: poor fluid intake, poor solids intake, tooth pain Allergies and Home Medications Allergies Coded Allergies: NKANo Known Allergies (Unverified Allergy, Mild, 09/29/08) Patient Home Medication List Home Medication List Reviewed: Yes Doxycycline Hyclate (Doxycycline Hyclate) 100 Mg Tablet, 100 MG PO BID Prescribed by: THOMAS HAWLEY on 05/21/20 1748 Escitalopram Oxalate (Escitalopram Oxalate) 20 Mg Tablet, 20 MG PO DAILY, (Reported) Entered as Reported by: ZACHERY DUEÑAS on 01/12/19 1157 Hydrocodone/Acetaminophen (Hydrocodone-Acetamin 5-325 mg) 5 Mg-325 Mg Tablet, 1 TAB PO Q6H PRN for PAIN-MODERATE (5-7) Prescribed by: MIRANDA AGUIRRE on 10/16/21 0426 Ondansetron (Ondansetron Odt) 4 Mg Tab.rapdis, 4 MG SL Q4H PRN for NAUSEA/VOMITING Prescribed by: PERLITA OJEDA on 08/12/19 0632 Penicillin V Potassium (Penicillin V Potassium) 500 Mg Tablet, 500 MG PO Q6H Prescribed by: MIRANDA AGUIRRE on 10/16/21 0425 Prednisone (Prednisone) 20 Mg Tab, 40 MG PO DAILY Prescribed by: THOMAS HAWLEY on 05/21/20 1748 Terbinafine HCl (Terbinafine HCl) 250 Mg Tablet, 250 MG PO Q48H, (Reported) Entered as Reported by: ZACHERY DUEÑAS on 01/12/19 1157 Review of Systems Review of Systems Constitutional: see HPI Ears: Pain (left ear from jaw) Mouth: other (dental pain) Respiratory: no symptoms reported Cardiovascular: no symptoms reported : Yes Musculoskeletal: no symptoms reported Skin: no symptoms reported Neurological: Anxiety, Depressed All Other Systems Reviewed Negative Unless Noted: Yes Past Afolotc-Awlllg-Ygwdxf Hx Immunizations Up To Date Tetanus Booster (TDap): Less than 5yrs PED Vaccines UTD: No Seasonal Allergies Seasonal Allergies: Yes Past Medical History Surgery/Hospitalization HX: BILATERAL CATARACT SURGERY BMT'S COLONOSCOPY/POLYPECTOMY 12/[address] LACEY Surgeries: Yes (tubes in ears, cataract) Abdominal, Adenoidectomy, Ear Surgery, Eye Surgery, Tonsillectomy Respiratory: Yes Asthma Cardiac: Yes High Cholesterol Neurological: No Reproductive Disorders: No Female Reproductive Disorders: Denies Sexually Transmitted Disease: No HIV/AIDS: No Genitourinary: Yes UTI-Chronic Gastrointestinal: Yes Diverticulosis, Polyps Musculoskeletal: Yes Chronic Back Pain Endocrine: No HEENT: Yes (BILAT CATARACT SURGERY; BMT'S) Cataract, Chronic Ear Infection Hearing Impairment: Denies Cancer: No Psychosocial: Yes Depression Integumentary: No Blood Disorders: No Adverse Reaction/Blood Tranf: No (N/a) Family Medical History HEART STENTS 19 FATHER Hypertension 19 MOTHER Myocardial infarction 19 FATHER Heart Disease, Diabetes, Hypertension Physical Exam Vital Signs Vital Signs - First Documented 10/16/21 04:19 Temp 37.0 Pulse 84 Resp 18 B/P (MAP) 109/73 (85) Pulse Ox 98 O2 Delivery Room Air Height, Weight, BMI Height: 5'4.00" Weight: 250lbs. 0.0oz. [id number]; 43.00 BMI Method:Stated General Appearance: WD/WN, mild distress Eyes: bilateral eye normal inspection, bilateral eye PERRL, bilateral eye EOMI Ears: bilateral ear auricle normal Nose: normal inspection Mouth/Throat: dental tenderness Neck: non-tender, full range of motion, supple Respiratory: no respiratory distress, no accessory muscle use Neurologic/Psychiatric: alert, normal mood/affect, oriented x 3 Skin: normal color, warm/dry Procedures/Interventions Dental Procedures: Progress/Results/Core Measures Results/Orders My Orders Orders - MIRANDA AGUIRRE MD Rx-Hydrocodone/Apap 5-325 Mg (Rx-Vicodin (10/16/21 04:30) Penicillin Vk Tablet (Veetid Tablet) (10/16/21 04:30) Lidocaine 1% Inj 30 Ml (Xylocaine 1% Inj (10/16/21 04:30) Bupivacaine 0.5% W/Epi Inj (Sensorcaine (10/16/21 04:30) Bupivacaine 0.5% Injection (Sensorcaine (10/16/21 04:31) Lidocaine 1% Inj 20 Ml (Xylocaine 1% Inj (10/16/21 04:32) Benzocaine Extension Tube (Hurricaine Ex (10/16/21 04:45) Benzocaine Extension Tube (Hurricaine Ex (10/16/21 04:42) Medications Given in ED Current Medications Medications Dose Ordered Sig/Carlos Route Start Time Stop Time Status Last Admin Dose Admin Acetaminophen/ Hydrocodone Bitart 1 ea Q6H PRN PO 10/16/21 04:30 10/16/21 04:41 1 EA Benzocaine 1 ea ONCE ONCE XX 10/16/21 04:45 10/16/21 04:46 DC 10/16/21 04:44 1 EA Bupivacaine HCl 30 ml STK-MED ONCE .ROUTE 10/16/21 04:31 10/16/21 04:35 DC 10/16/21 04:43 30 ML Lidocaine HCl 20 ml STK-MED ONCE .ROUTE 10/16/21 04:32 10/16/21 04:35 DC 10/16/21 04:43 20 ML Penicillin V Potassium 500 mg ONCE ONCE PO 10/16/21 04:30 10/16/21 04:31 DC 10/16/21 04:41 500 MG Vital Signs/I&O 10/16/21 04:19 Temp 37.0 Pulse 84 Resp 18 B/P (MAP) 109/73 (85) Pulse Ox 98 O2 Delivery Room Air Progress Progress Note : Time: 04:54 Progress Note left inferior alveolar nerve block with 2% lidocaine and 0.5% bupivicaine approximately 1.5ml Departure Impression Primary Impression: Pain, dental Disposition: HOME, SELF-CARE Condition: Stable Departure-Patient Inst. Decision time for Depature: 04:23 Referrals: GIGI GARCIA MD (PCP/Family) Primary Care Physician Patient Instructions: Dental Pain Add. Discharge Instructions: Take the antibiotics as directed for the next 10 days. Try and brush at least twice a day and also use a good oral Listerine rinse daily. Keep your Tylenol doses 6 hours apart. Hydrocodone contains Tylenol so keep this in mind. A total of 1000 mg every 6 hours is appropriate. If you develops facial swelling, redness, fever or worsening pain please come back to the emergency room for reevaluation. Keep your appointment with [facility] dental. Scripts Hydrocodone/Acetaminophen (Hydrocodone-Acetamin 5-325 mg) 5 Mg-325 Mg Tablet 1 TAB PO Q6H PRN for PAIN-MODERATE (5-7), #12 TAB Prov: MIRANDA AGUIRRE MD 10/16/21 Penicillin V Potassium (Penicillin V Potassium) 500 Mg Tablet 500 MG PO Q6H for 10 Days, #40 TAB Prov: MIRANDA AGUIRRE MD 10/16/21 MIRANDA AGUIRRE MD October 16, 2021 04:26
[2021-10-16] MEDS ORDERED: LIDOCAINE 1% INJ 30 ML (XYLOCAINE) VIAL INJ ONE (04:30)
[2021-10-16] MEDS ORDERED: BUP/EPI 0.5% 1:200,000 (SENSORCAINE) 30 ML VIAL INJ ONE (04:30)
[2021-10-16] MEDS ORDERED: PENICILLIN V K 250 MG TAB PO ONE (04:30)
[2021-10-16] MEDS ORDERED: BUPIVACAINE 0.5% 30 ML (SENSORCAINE) VIAL INJ ONE (04:30)
[2021-10-16] MEDS ORDERED: BUPIVACAINE 0.5% 30 ML (SENSORCAINE) VIAL ONE (04:31)
[2021-10-16] MEDS ORDERED: LIDOCAINE 1% INJ 20 ML VIAL ONE (04:32)
[2021-10-16] MEDS ORDERED: HURRICAINE EXT TUBE (BENZOCAINE) ONE (04:42)
[2021-10-16] MEDS ORDERED: HURRICAINE EXT TUBE (BENZOCAINE) XX ONE (04:45)
[2021-10-16 04:58] VITALS: BP 109/73
== END 2021-10-16 04:58 | disposition home or self-care (01) ==
LOC: EDUNIT# 04:00 → ER 04:04
DX: O99.612 Diseases of the digestive system complicating pregnancy, second trimester (principal); K08.89 Other specified disorders of teeth and supporting structures; O99.332 Smoking (tobacco) complicating pregnancy, second trimester; F17.200 Nicotine dependence, unspecified, uncomplicated; Z3A.20 20 weeks gestation of pregnancy
CPT/HCPCS: 99283

== ENCOUNTER 2021-12-16 16:01 | Emergency (ER) | payer BC ==
[~2021-12-16] VITALS: Ht 162.5 cm; Wt 100.0 kg
[~2021-12-16 16:01] MED LIST changes: +PENI500T PO
--- NOTE | 2021-12-16 16:24 | ED General ---
General Stated Complaint: CONSTIPATION Source of Information: Patient Exam Limitations: No Limitations History of Present Illness Date Seen by Provider: Dec 16, 2021 Time Seen by Provider: 16:23 Initial Comments To ER with constipation and no bowel movement for 1 week. She feels like there is a stool ball within the rectum that she is unable to pass. She also has abdominal pain diffusely. She has taken an tvpz-ngo-lizdbtg stool softener without relief. She has been vomiting. She is 29 weeks gestation G4, P3. Timing/Duration: 1-2 Days Severity: Moderate Associated Systoms: Denies Symptoms Allergies and Home Medications Allergies Coded Allergies: NKANo Known Allergies (Unverified Allergy, Mild, 09/29/08) Patient Home Medication List Home Medication List Reviewed: Yes Doxycycline Hyclate (Doxycycline Hyclate) 100 Mg Tablet, 100 MG PO BID Prescribed by: THOMAS HAWLEY on 05/21/201747 Escitalopram Oxalate (Escitalopram Oxalate) 20 Mg Tablet, 20 MG PO DAILY, (Reported) Entered as Reported by: ZACHERY DUEÑAS on 01/12/19 115 Hydrocodone/Acetaminophen (Hydrocodone-Acetamin 5-325 mg) 5 Mg-325 Mg Tablet, 1 TAB PO Q6H PRN for PAIN-MODERATE (5-7) Prescribed by: MIRANDA AGUIRRE on 10/16/21 0426 Ondansetron (Ondansetron Odt) 4 Mg Tab.rapdis, 4 MG SL Q4H PRN for NAUSEA/VOMITING Prescribed by: PERLITA OJEDA on 08/12/19 0632 Penicillin V Potassium (Penicillin V Potassium) 500 Mg Tablet, 500 MG PO Q6H Prescribed by: MIRANDA AGUIRRE on 10/16/21 0425 Prednisone (Prednisone) 20 Mg Tab, 40 MG PO DAILY Prescribed by: THOMAS HAWLEY on 05/21/20 174 Terbinafine HCl (Terbinafine HCl) 250 Mg Tablet, 250 MG PO Q48H, (Reported) Entered as Reported by: ZACHERY DUEÑAS on 01/12/19 1157 Review of Systems Review of Systems Constitutional: see HPI EENTM: see HPI Respiratory: no symptoms reported Cardiovascular: no symptoms reported Genitourinary: no symptoms reported Musculoskeletal: no symptoms reported Skin: no symptoms reported Psychiatric/Neurological: No Symptoms Reported Hematologic/Lymphatic: No Symptoms Reported Past Cszzbds-Zwzmzk-Mpfpzm Hx Immunizations Up To Date Tetanus Booster (TDap): Less than 5yrs PED Vaccines UTD: No Seasonal Allergies Seasonal Allergies: Yes Past Medical History Surgery/Hospitalization HX: BILATERAL CATARACT SURGERYBMT'SCOLONOSCOPY/POLYPECTOMY 12/[address] LACEY Surgeries: Yes (tubes in ears, cataract) Abdominal, Adenoidectomy, Ear Surgery, Eye Surgery, Tonsillectomy Respiratory: Yes Asthma Cardiac: Yes High Cholesterol Neurological: No Reproductive Disorders: No Female Reproductive Disorders: Denies Sexually Transmitted Disease: No HIV/AIDS: No Genitourinary: Yes UTI-Chronic Gastrointestinal: Yes Diverticulosis, Polyps Musculoskeletal: Yes Chronic Back Pain Endocrine: No HEENT: Yes (BILAT CATARACT SURGERY; BMT'S) Cataract, Chronic Ear Infection Hearing Impairment: Denies Cancer: No Psychosocial: Yes Depression Integumentary: No Blood Disorders: No Adverse Reaction/Blood Tranf: No (N/a) Family Medical History HEART STENTS 19 FATHER Hypertension 19 MOTHER Myocardial infarction 19 FATHER Heart Disease, Diabetes, Hypertension Physical Exam Vital Signs Vital Signs - First Documented 12/16/21 16:19 Temp 35.8 Pulse 106 Resp 18 B/P (MAP) 120/74 (89) Pulse Ox 95 O2 Delivery Room Air Capillary Refill : Height, Weight, BMI Height: 5'4.00" Weight: 250lbs. 0.0oz. 113.471150dx; 43.00 BMI Method:Stated General Appearance: No Apparent Distress, WD/WN Eyes: Bilateral Eye Normal Inspection, Bilateral Eye PERRL, Bilateral Eye EOMI Neck: Full Range of Motion, Normal Inspection Respiratory: No Accessory Muscle Use, No Respiratory Distress Cardiovascular: Regular Rate, Rhythm, Normal Peripheral Pulses Gastrointestinal: Normal Bowel Sounds, Non Tender, Soft Rectal: Other (Digital rectal exam with Cassia RN at the bedside reveals a large stool ball in the rectum. Vaginal inspection with speculum minor amount of whitish discharge in the vaginal vault. No blood. Cervix not well visualized. Bedside ultrasound shows positive motion with cardiac activity heart rate of 150.) Extremity: Normal Capillary Refill, Normal Inspection Neurologic/Psychiatric: Alert, Oriented x3 Skin: Normal Color, Warm/Dry Progress/Results/Core Measures Suspected Sepsis SIRS Temperature: Pulse: Respiratory Rate: Laboratory Tests 12/16/21 17:07: White Blood Count 16.7H Blood Pressure / Mean: Laboratory Tests 12/16/21 17:07: Creatinine 0.60, Platelet Count 320, Total Bilirubin 0.4 Results/Orders Lab Results Laboratory Tests Test 12/16/21 17:07 Range/Units White Blood Count 16.7 H 4.3-11.0 10^3/uL Red Blood Count 4.19 3.80-5.11 10^6/uL Hemoglobin 13.4 11.5-16.0 g/dL Hematocrit 39 35-52 % Mean Corpuscular Volume 92 80-99 fL Mean Corpuscular Hemoglobin 32 25-34 pg Mean Corpuscular Hemoglobin Concent 35 32-36 g/dL Red Cell Distribution Width 14.2 10.0-14.5 % Platelet Count 320 130-400 10^3/uL Mean Platelet Volume 11.5 9.0-12.2 fL Immature Granulocyte % (Auto) 0 % Neutrophils (%) (Auto) 84 H 42-75 % Lymphocytes (%) (Auto) 10 L 12-44 % Monocytes (%) (Auto) 4 0-12 % Eosinophils (%) (Auto) 1 0-10 % Basophils (%) (Auto) 0 0-10 % Neutrophils # (Auto) 14.1 H 1.8-7.8 10^3/uL Lymphocytes # (Auto) 1.7 1.0-4.0 10^3/uL Monocytes # (Auto) 0.7 0.0-1.0 10^3/uL Eosinophils # (Auto) 0.1 0.0-0.3 10^3/uL Basophils # (Auto) 0.0 0.0-0.1 10^3/uL Immature Granulocyte # (Auto) 0.1 0.0-0.1 10^3/uL Sodium Level 142 135-145 MMOL/L Potassium Level 4.0 3.6-5.0 MMOL/L Chloride Level 107 98-107 MMOL/L Carbon Dioxide Level 17 L 21-32 MMOL/L Anion Gap 18 H 5-14 MMOL/L Blood Urea Nitrogen 6 L 7-18 MG/DL Creatinine 0.60 0.60-1.30 MG/DL Estimat Glomerular Filtration Rate 123 BUN/Creatinine Ratio 10 Glucose Level 90 70-105 MG/DL Calcium Level 9.6 8.5-10.1 MG/DL Corrected Calcium 10.0 8.5-10.1 MG/DL Total Bilirubin 0.4 0.1-1.0 MG/DL Aspartate Amino Transf (AST/SGOT) 19 5-34 U/L Alanine Aminotransferase (ALT/SGPT) 26 0-55 U/L Alkaline Phosphatase 153 H 40-136 U/L Total Protein 7.1 6.4-8.2 GM/DL Albumin 3.5 3.2-4.5 GM/DL My Orders Orders - LINDA JHAVERI APRN Na Phos/Na Biphos Enema (Fleet Enema Jovon (12/16/21 16:30) Ondansetron Oral Dissolve Tab (Zofran (12/16/21 16:45) Cbc With Automated Diff (12/16/21 16:44) Comprehensive Metabolic Panel (12/16/21 16:44) Manual Differential (12/16/21 17:07) Medications Given in ED Current Medications Medications Dose Ordered Sig/Carlos Route Start Time Stop Time Status Last Admin Dose Admin Ondansetron HCl 8 mg ONCE ONCE PO 12/16/21 16:45 12/16/21 16:46 DC 12/16/21 17:02 8 MG Sodium Biphosphate/ Sodium Phosphate 1 ea ONCE ONCE FL 12/16/21 16:30 12/16/21 16:31 DC 12/16/21 17:02 1 EA Vital Signs/I&O 12/16/21 16:19 Temp 35.8 Pulse 106 Resp 18 B/P (MAP) 120/74 (89) Pulse Ox 95 O2 Delivery Room Air Capillary Refill : Departure Communication (Admissions) After a fleets enema she did pass a large amount of stool she states and feels a little bit better but still has some abdominal pain. We will discharge from ER up to women services for further evaluation. Impression Primary Impression: Fecal impaction in rectum Disposition: HOME, SELF-CARE Condition: Stable Departure-Patient Inst. Decision time for Depature: 17:47 Referrals: GIGI GARCIA MD (PCP/Family) Primary Care Physician Patient Instructions: Fecal Impaction (DC) Add. Discharge Instructions: 1. Go from here up to women services. Return to ER for any concerns. Take 1 capful of MiraLAX dissolved in a glass of water twice a day for 5 days. LINDA JHAVERI APRN Dec 16, 2021 16:24
[2021-12-16] MEDS ORDERED: FLEET ENEMA ADULT 1 EA BTL PR ONE (16:30)
[2021-12-16] MEDS ORDERED: ONDANSETRON 4 MG (ZOFRAN) ORAL DISSOLVE TAB PO ONE (16:45)
[2021-12-16 17:13] LABS: BASOPHILS % (AUTO) 0 % (0-10); EOSINOPHILS # (AUTO) 0.1 10^3/uL (0.0-0.3); EOSINOPHILS % (AUTO) 1 % (0-10); HEMATOCRIT 39 % (35-52); HEMOGLOBIN 13.4 g/dL (11.5-16.0); LYMPHOCYTES # (AUTO) 1.7 10^3/uL (1.0-4.0); LYMPHOCYTES % (AUTO) 10 % (12-44); MEAN CORPUSCULAR HEMOGLOBIN 32 pg (25-34); MEAN CORPUSCULAR HGB CONC 35 g/dL (32-36); MEAN CORPUSCULAR VOLUME 92 fL (80-99); MEAN PLATELET VOLUME 11.5 fL (9.0-12.2); MONOCYTES # (AUTO) 0.7 10^3/uL (0.0-1.0); MONOCYTES % (AUTO) 4 % (0-12); NEUTROPHILS # (AUTO) 14.1 10^3/uL (1.8-7.8); NEUTROPHILS % (AUTO) 84 % (42-75); PLATELET COUNT 320 10^3/uL (130-400); WHITE BLOOD COUNT 16.7 10^3/uL (4.3-11.0)
[2021-12-16 17:24] LABS: ALBUMIN 3.5 GM/DL (3.2-4.5)
[2021-12-16 17:26] LABS: CALCIUM 9.6 MG/DL (8.5-10.1)
[2021-12-16 17:27] LABS: TOTAL PROTEIN 7.1 GM/DL (6.4-8.2)
[2021-12-16 17:29] LABS: BILIRUBIN,TOTAL 0.4 MG/DL (0.1-1.0)
[2021-12-16 17:31] LABS: CREATININE SERUM 0.6 MG/DL (0.60-1.30)
[2021-12-16 17:51] LABS: BAND NEUTROPHILS 0 %; BASOPHILS % (MANUAL) 0 %; EOSINOPHILS % (MANUAL) 1 %; LYMPHOCYTES % (MANUAL) 10 %; MONOCYTES % (MANUAL) 5 %; NEUTROPHILS % (MANUAL) 84 %; RBC MORPH NORMAL
[2021-12-16 18:05] VITALS: BP 114/69
== END 2021-12-16 18:00 | disposition home or self-care (01) ==
LOC: EDUNIT# 16:01 → ER 16:02
DX: O99.613 Diseases of the digestive system complicating pregnancy, third trimester (principal); K56.41 Fecal impaction; Z3A.29 29 weeks gestation of pregnancy
CPT/HCPCS: 36415; 80053; 85007; 85027

== ENCOUNTER 2021-12-16 18:18 | Outpatient (CLI) | payer BC ==
[~2021-12-16] VITALS: Ht 162.6 cm; Wt 97.6 kg
[2021-12-16 18:35] VITALS: BP 125/75
[2021-12-16 18:56] LABS: CLARITY,URINE CLEAR; COLOR,URINE YELLOW; GLUCOSE, URINE (UA) NEGATIVE (NEGATIVE); KETONES,URINE 3+ (NEGATIVE); LEUKOCYTE ESTERASE ,URINE 1+ (NEGATIVE); NITRITE,URINE NEGATIVE (NEGATIVE); PH,URINE 7.5 (5-9); PROTEIN,URINE NEGATIVE (NEGATIVE)
[2021-12-16] MEDS ORDERED: ACETAMINOPHEN 500 MG TAB (TYLENOL) PO PRN (19:00)
[2021-12-16] MEDS ORDERED: NS IV 1000 ML 1,000 ML IV SCH (19:00)
[2021-12-16 19:07] LABS: BACTERIA,URINE NEGATIVE /HPF; BILIRUBIN,URINE 1+ (NEGATIVE); RBC,URINE 0-2 /HPF
[2021-12-16 19:08] LABS: TRICHOMONAS,URINE MODERATE /HPF
[2021-12-16] MEDS ORDERED: metroNIDAZOLE 500 MG (FLAGYL) TAB ONE (19:59)
[2021-12-16] MEDS ORDERED: metroNIDAZOLE 500 MG (FLAGYL) TAB PO ONE (20:00)
--- NOTE | 2021-12-17 08:17 | Physician Query-Final Dx ---
Clinic Account Progress/Dx Physician Query: Please give diagnosis Please include # weeks gestation Date of Service Dec 16, 2021 at 18:18 KT,MayDec 17, 2021 08:17
== END 2021-12-16 21:00 | disposition home or self-care (01) ==
LOC: LDRP 18:18 → WSo 18:18
PROVIDERS: ATTEND Family Medicine
DX: O26.893 Other specified pregnancy related conditions, third trimester (principal); R10.9 Unspecified abdominal pain; Z3A.29 29 weeks gestation of pregnancy
CPT/HCPCS: 81000; 87088; 96360; G0463; 99213

== ENCOUNTER 2022-01-17 20:00 | Outpatient (CLI) | payer BC ==
[~2022-01-17] VITALS: Ht 162.5 cm; Wt 96.0 kg
[2022-01-17] VITALS (14 sets, daily range): BP systolic 95–127; BP diastolic 55–70
[2022-01-17] MEDS ORDERED: BETAMETHASONE ACE/NA PHOS 6 MG/ML (CELESTONE SOLUSPAN) ONE (20:55)
[2022-01-17] MEDS ORDERED: LACTATED RINGERS 1,000 ML IV SCH (21:15)
[2022-01-17 21:26] LABS: BILIRUBIN,URINE NEGATIVE (NEGATIVE); CLARITY,URINE CLEAR; COLOR,URINE YELLOW; GLUCOSE, URINE (UA) NEGATIVE (NEGATIVE); KETONES,URINE NEGATIVE (NEGATIVE); LEUKOCYTE ESTERASE ,URINE 1+ (NEGATIVE); NITRITE,URINE NEGATIVE (NEGATIVE); PROTEIN,URINE NEGATIVE (NEGATIVE)
[2022-01-17] MEDS ORDERED: AMPICILLIN FOR IV USE 2,000 MG in WATER (STERILE) FOR INJECTION 14.8 ML IV ONE (21:30)
--- NOTE | 2022-01-17 21:35 | History & Physical-OB ---
OB - Chief Complaint & HPI Date/Time Date of Admission: Date of Admission: Date seen by a Provider: Jan 17, 2022 Time Seen by a Provider: 21:31 Chief Complaint/History OB-Reason for Admission/Chief: Rupture of Membranes (PPROM) Hx : 4 Hx Para: 3 Expected Date of Delivery: Mar 04, 2022 Gestational Age in Weeks: 33 Gestational Age in Days: 3 Allergies and Home Medications Allergies Coded Allergies: NKANo Known Allergies (Unverified Allergy, Mild, 09/29/08) Patient Home Medication List Home Medication List Reviewed: Yes No Active Prescriptions or Reported Meds OB - History Hx of Present Care: Yes Obstetrical Complications: None Medical Complications: Psychiatric (Opioid use disorder, on Suboxone) Information Induced Hypertension: No Maternal Gestational Diabetes: No Hemorrhage: No Obstetrical History Hx : 4 Hx Para: 3 Hx # Pregnancies: 3 Hx Termination: Yes Delivery History Hx Blood Disorders: No Adverse Rxn to Tranfusion: No (N/a) Patient Past Medical History PMHx: Depression Substance abuse hx of delivery at 36wk x3 PSurgHx: Tympanostomy tubes Tonsillectomy Social History/Family History Alcohol Use: Denies Use Recreational Drug Use: No 2nd Hand Smoke Exposure: No Immunizations Hepatitis A: No Hepatitis B: Yes Tetanus Booster (TDap): Less than 5yrs OB - Admission Exam Physical Exam Vitals: Vital Signs 01/17/22 20:40 Temp 36.9 Pulse 97 Resp 20 Pulse Ox 97 O2 Delivery Room Air Cervical Dilatation: 4cm Station: -1 Membranes: Ruptured Amniotic Fluid: Clear Heart Rate: 120's Decelerations: No Decelerations Contractions on Admission: 6-10 Minutes Apart Intensity: Mild Labs Laboratory Tests Test 01/17/22 20:45 Range/Units OB - Assessment/Plan/Diagnosis Assessment Assessment: rupture of membranes Admission Dx rupture of membranes at 33wk GA Admission Status: Other Plan Plan: Other (transfer to [facility] due to GA) ARIEL IRVIN DO Jan 17, 2022 21:35
--- NOTE | 2022-01-17 21:42 | Clinic Account Progress/Dx ---
Clinic Account Progress/Dx DIAGNOSIS: Date Seen by Provider: Jan 17, 2022 Time Seen by Provider: 21:41 rupture of membranes at 33wk GA ARIEL IRVIN DO Jan 17, 2022 21:41
[2022-01-17] MEDS ORDERED: CALCIUM GLUC. 10% 4.65 MEQ/10 ML VIAL IV SCH (21:45)
[2022-01-17] MEDS ORDERED: MAGNESIUM 4 GM/100 ML IVPB 100 ML IV SCH (21:45)
[2022-01-17] MEDS ORDERED: MAGNESIUM 4 GM/100 ML IVPB 100 ML IV ONE (21:45)
[2022-01-17 22:07] LABS: AMPHETAMINE SCREEN, URINE NEGATIVE (NEGATIVE); BARBITURATE SCREEN URINE NEGATIVE (NEGATIVE); BENZODIAZEPINES SCREEN URINE NEGATIVE (NEGATIVE); CANNABINOID SCREEN, URINE NEGATIVE (NEGATIVE); COCAINE SCREEN URINE NEGATIVE (NEGATIVE); METHADONE STAT NEGATIVE (NEGATIVE); OPIATE SCREEN URINE NEGATIVE (NEGATIVE); OXYCODONE STAT NEGATIVE (NEGATIVE); PROPOXYPHENE STAT NEGATIVE (NEGATIVE); TRICYCLIC ANTIDEPRESSANTS SCRE NEGATIVE (NEGATIVE)
[2022-01-17] MEDS ORDERED: MAGNESIUM SULFATE DRIP 500 ML IV SCH (22:15)
[2022-01-17 22:25] LABS: BACTERIA,URINE NEGATIVE /HPF; SQUAMOUS EPITHELIAL CELL,UR 0-2 /HPF; TRICHOMONAS,URINE FEW /HPF
[2022-01-17] MEDS ORDERED: ALBU5SOL6 IH (23:36)
[2022-01-17] MEDS ORDERED: ESCI10TA PO (23:36)
[2022-01-17] MEDS ORDERED: OMEP20CA18 PO (23:36)
[2022-01-17] MEDS ORDERED: BUPR1FIL3 SL (23:36)
[2022-01-18 00:20] VITALS: BP 125/68
[2022-01-18] MEDS ORDERED: BETAMETHASONE ACE/NA PHOS 6 MG/ML (CELESTONE SOLUSPAN) IM SCH (09:00)
== END 2022-01-18 00:20 ==
LOC: LDRP 20:00 → WSo 20:00
PROVIDERS: ATTEND Family Medicine
DX: O42.00 Premature rupture of membranes, onset of labor within 24 hours of rupture, unspecified weeks of gestation (principal); Z3A.33 33 weeks gestation of pregnancy
CPT/HCPCS: 36415; 80306; 81000; 83735; 87077; 87088